=== PATIENT | male | born 1990 ===

== ENCOUNTER 2022-05-24 17:45 | Emergency (ER) | payer MEDICAID, SELFPAY ==
--- NOTE | 2022-05-24 19:48 | PC.NURSE ---
called x 4 to triage. No answer. LWT
== END 2022-05-24 19:49 | disposition left against medical advice (07) ==
PROVIDERS: Emergency Provider Emergency Medicine
DX: R22.1 Localized swelling, mass and lump, neck (principal)

== ENCOUNTER 2022-05-26 12:28 | Emergency (ER) | payer MEDICAID, SELFPAY ==
--- NOTE | ~2022-05-26 | CT_ITS ---
CT ANGIOGRAM NECK CLINICAL INFORMATION: Possible dissection versus mass. COMPARISON: Neck CT 05/26/2022. TECHNIQUE: A CTA acquisition of the neck is obtained following the administration of 70 mL of Omnipaque 350 intravenous contrast without complication. Vascular post-processing, including 2-dimensional and 3-dimensional reformatted images were created and reviewed on an independent workstation under concurrent physician supervision. Stenoses are graded per criteria similar to NASCET. This CT examination was performed using dose optimization techniques as appropriate, variously including the following: *Automated exposure control *Adjustment of mA and/or kV according to patient size (this includes techniques or standardized protocols for targeted exams where dose is matched to indication/reason for exam; i.e. extremities or head) *Use of iterative reconstruction technique FINDINGS: Correlating with the recent noncontrast CT of the neck, there is circumferential soft tissue density along the periphery of the mid to distal right common carotid artery, the right carotid bulb, and the proximal right internal carotid artery. Differential considerations include Carotidynia versus vasculitis for which vascular consultation is advised. The appearance would not be typical for a dissection though T1 and T2 fat-suppressed MR series without contrast could be obtained to more definitively exclude a dissection. 3 great vessel branch configuration off of the aortic arch. The great vessel origins are widely patent. The left vertebral artery is dominant and the cervical vertebral arteries are widely patent. The imaged upper lungs are clear and the imaged upper mediastinum is unremarkable. There are nonpathologic size criteria lymph nodes throughout the suprahyoid and infrahyoid neck. Accessory parotid tissue superficial to the masseter muscles bilaterally. CT/CT angio neck IMPRESSION: Correlating with the recent noncontrast CT of the neck, there is circumferential soft tissue density along the periphery of the mid to distal right common carotid artery, the right carotid bulb, and the proximal right internal carotid artery. Differential considerations include Carotidynia versus vasculitis for which vascular consultation is advised. The appearance would not be typical for a dissection though T1 and T2 fat-suppressed MR series WITHOUT contrast could be obtained to more definitively exclude a dissection and fat-suppressed T1 series WITH CONTRAST of the neck would be helpful in assessing for an underlying pericarotid inflammatory process.
--- NOTE | ~2022-05-26 | CT_ITS ---
EXAMINATION: CT SOFT TISSUE NECK WITHOUT CONTRAST CLINICAL INFORMATION: Painful lump in the right side of the neck COMPARISON: None TECHNIQUE: Helical imaging was performed in the axial plane with generation of coronal and sagittal reformatted images. This CT examination was performed using dose optimization techniques as appropriate, variously including the following: *Automated exposure control *Adjustment of mA and/or kV according to patient size (this includes techniques or standardized protocols for targeted exams where dose is matched to indication/reason for exam; i.e. extremities or head) *Use of iterative reconstruction technique DLP: 648 mGy-cm FINDINGS: Visualized intracranial contents are grossly unremarkable-limited assessment. Globes and retro-orbital structures are normal. Normal appearance of the inspector watch parts and parotid spaces. Submandibular glands and thyroid gland are normal. Unremarkable appearance of the larynx. No mucosal space mass. Symmetric appearance of the parapharyngeal fat. No pathologically enlarged cervical lymph nodes are identified. There is ill-defined low-density soft tissue surrounding the right carotid bifurcation and proximal right internal carotid artery, please see olea images. Assessment of vascular structures is significantly limited due to lack of intravenous contrast. Visualized upper lungs are grossly clear. There is soft tissue density in the anterior mediastinum compatible with residual thymic tissue. No mediastinal lymphadenopathy. No fracture or suspicious appearing marrow replacing lesion. CT/CT soft tissue neck wo con IMPRESSION: 1. Abnormal low-density tissue about the right carotid bifurcation and proximal right internal carotid artery. Evaluation is limited due to lack of intravenous contrast. Cannot exclude dissection or possibly carotid body tumor. Suggest a contrast-enhanced exam or MRI with contrast for further evaluation.
[2022-05-26 12:36] VITALS: BP 134/94; PULSE 77; RESP 18; TEMP 36.6; O2SAT 99; BMI 27.8
--- NOTE | 2022-05-26 12:52 | ED.GENADULT ---
HPI - General Adult General Chief complaint: Neck Pain/Injury Stated complaint: throat pain Time Seen by Provider: 05/26/22 12:52 Source: patient Mode of arrival: ambulatory Limitations: no limitations History of Present Illness HPI narrative: Patient is a 31 year old male presenting to the emergency department today with right sided neck pain. Patient states that a few days ago, the right side of his neck started to hurt and it hasn't gotten better. 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 Patient states that the pain is worse when he pushes on it or moves. Patient denies any dizziness, lightheadedness, abdominal pain, nausea, vomiting, fever, chills, blurry vision, double vision, loss of vision, chest pain, difficulty breathing, shortness of breath, back pain, night sweats, pain with urination, increased urinary frequency, increased urinary urgency, blood in his urine or stool, syncope or a near syncopal episode, recent trauma or falls, bowel incontinence, bladder incontinence, bowel retention, bladder retention, or any other complaints at this time. Onset (ago): day(s) (3) Radiation: non-radiation Severity: mild Severity scale (1-10): 3 Quality: aching and dull Pain Consistency: constant Relieving factors: none Exacerbating factors: movement Associated symptoms: denies other symptoms Treatments prior to arrival: none Related Data Previous Rx's Medication Instructions Recorded prednisone 20 mg tablet 20 mg PO DAILY 12 days #26 tabs 05/26/22 Allergies Allergy/AdvReac Type Severity Reaction Status Date / Time No Known Allergies Allergy Verified 05/26/22 13:01 Review of Systems Constitutional: Constitutional: Reports no additional constitutional complaints, Denies chills, Denies fever(s) and Denies night sweats Eyes: Eyes: Reports no additional eye complaints, Denies blurry vision, Denies change in vision, Denies diplopia, Denies eye discharge, Denies loss of vision and Denies eye pain ENT: Denies dizziness Cardiovascular: Cardiovascular: Reports no additional cardiovascular complaints, Denies chest pain, Denies lightheadedness, Denies Loss of Consciousness and Denies dyspnea Respiratory: Respiratory: Reports no additional respiratory complaints and Denies dyspnea Gastrointestinal: Gastrointestinal: Reports no additional gastrointestinal complaints, Denies abdominal pain, Denies melena, Denies hematochezia, Denies change in bowel habits and Denies change in stool character Genitourinary: Genitourinary: Reports no additional male genitourinary complaints, Denies hematuria, Denies oliguria, Denies difficulty urinating, Denies dysuria, Denies urinary frequency, Denies urinary hesitancy, Denies urinary incontinence and Denies urinary urgency Musculoskeletal: Musculoskeletal: Reports no additional musculoskeletal complaints, Denies numbness and Denies tingling Comments: right sided neck pain Neurologic: Denies dizziness, Denies loss of vision, Denies numbness and Denies tingling Psychiatric: Psychiatric: Reports no additional psychiatric complaints Endocrine: Endocrine: Reports no additional endocrine complaints Hematologic/Lymphatic: Hematologic/Lymphatic: Reports no additional hematologic/lymphatic complaints Allergic/Immunologic: Allergic/Immunologic: Reports no additional allergic/immunologic complaints [facility] Past Medical History Attestation statement: The following information was validated with the patient. Source: old records reviewed Social History Social History Advance Directives: No Advance Directives Information Provided: No Physical Exam ED Vital Signs: Vital Signs - 24 hr 05/26/22 12:36 Temperature 98 F Pulse Rate 77 Respiratory Rate 18 Blood Pressure 134/94 H Pulse Oximetry 99 Oxygen Delivery Method Room Air BMI result Body Mass Index 27.8 Const General: cooperative, no acute distress, alert and awake Nutritional Appearance: well nourished Orientation/consciousness: patient oriented x3 Limitations: no limitations [facility] Head: Yes normal to inspection and Yes atraumatic Ears: hearing grossly normal bilaterally and external ears normal General nose exam: Normal external nose present, no nasal discharge noted and no epistaxis Face and sinus: Yes normal facial exam, No abrasion and No laceration Mouth: Normal oral and palatal mucosa present, no drooling and no muffled voice Eyes General: appearance normal, both eyes and all related structures Periorbital: periorbital findings normal Eyelids: Yes eyelids normal Conjunctivae: conjunctivae normal Pupils: Equal, round and reactive pupils present EOM: EOMs intact bilaterally Neck Other: pain with movement to the right side, tender to palpation of the right anterior neck Neck: Yes no lymphadenopathy Chest Chest palpation & inspection: normal inspection of the chest Resp Effort & Inspection: normal respiratory effort and able to speak in complete sentences Auscultation: clear to auscultation bilaterally Cardio Rate: regular rate Rhythm: regular rhythm GI Inspection: Yes normal to inspection Neuro General: patient oriented x3 and moves all extremities Cranial nerves: Yes Equal, round and reactive pupils present Cognition (Neuro): normal cognition Motor exam (neuro): 5/5 motor strength present throughout Sensory Exam: Normal double simultaneous stimulation for sensation Coordination: [id number] test normal Extrem General: Yes normal to inspection, Yes full ROM and Yes capillary refill normal Psych Appearance: grossly normal Mental Status: mental status grossly normal Affect: normal affect Attitude: cooperative Thought process: Normal thought process present Thought content: Normal thought content present Insight: Good insight present (Psych) Medical Decision Making MDM Narrative Medical decision making narrative: Patient is a 31 year old male presenting to the emergency department today with right sided neck pain. Patient's physical exam showed tenderness to palpation of the right neck and pain with movement of the right neck. Patient's blood work was unremarkable. Patient's soft tissue CT scan showed an abnormal low-density tissue at the right carotid bifurcation and proximal right internal carotid artery, cannot exclude dissection or possible carotid body tumor. Patient's neck CTA showed circumferential soft tissue density along the periphery of the mid to distal right common carotid artery, the right carotid bulb, and the proximal right internal carotid artery, differential considerations include carotidynia versus vasculitis. I called and spoke to Dr. Dorantes, the vascular surgeon mergers and acquisitions consultant, who recommended the patient be started on oral steroids and follow up with a Scalloper. I explained my physical exam findings as well as all test results to the patient. I answered all questions asked by the patient. I stressed the importance of the patient taking his medication as prescribed. 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 I stressed the importance of the patient returning to the emergency department immediately if her symptoms were to worsen or if she were to develop any dizziness, shortness of breath, difficulty breathing, chest pain, blurry vision, loss of vision, nausea, vomiting, abdominal pain, fever, chills, back pain, or any other complaints. Patient verbalized agreement and understanding with this treatment plan and discharge. Differential Diagnosis Differential Diagnosis: vasculitis Medical Records Medical records reviewed: Yes I reviewed the patient's medical records. Lab Data Lab results reviewed: Yes I reviewed the patient's lab results. Result diagrams: 05/26/22 14:57 05/26/22 14:57 Labs: Lab Results 05/26/22 05/26/22 05/26/22 Range/Units 13:08 13:08 13:08 WBC (4.8-10.8) X10*3/uL RBC (4.60-5.80) X10*6/uL Hgb (14.0-18.0) g/dl Hct (42.0-52.0) % MCV (80.0-98.0) fL MCH (27.0-33.0) pg MCHC (31.0-36.0) g/dl RDW (11.0-16.0) % Plt Count (160-400) X10*3/uL MPV (9.4-12.4) fL Immature Gran % (Auto) (0.0-0.4) % Neut % (Auto) (45-73) % Lymph % (Auto) (20-40) % Travis % (Auto) (2-11) % Eos % (Auto) (0-4) % Baso % (Auto) (0-2) % Lymph # (Auto) (1.2-4.9) X10*3/uL Travis # (Auto) (0.1-1.2) X10*3/uL Eos # (Auto) (0.0-0.4) X10*3/uL Baso # (Auto) (0.0-0.2) X10*3/uL Abs Immat Gran (auto) (0.00-0.03) X10*3/uL Absolute Neuts (auto) (2.0-8.3) x10*3/uL Absolute Nucleated RBC (0.0-0.012) X10*3/uL Nucleated RBC % (auto) (0.0-0.2) /100WBC ESR (0-15) MM/HR PT (10.0-13.1) SEC INR (0.9-1.1) APTT (24.1-38.0) SEC Sodium (135-145) mmol/L Potassium (3.3-5.1) mmol/L Chloride (96-108) mmol/L Carbon Dioxide (22-29) mmol/L Anion Gap (12-20) BUN (9-16) mg/dL Creatinine (0.5-1.4) mg/dL Estim Creat Clear Calc Estimated GFR Random Glucose (60-115) mg/dL Calcium (8.4-10.2) mg/dL Total Bilirubin (0.0-1.0) mg/dL AST (5-37) U/L ALT (0-40) U/L Alkaline Phosphatase (39-117) U/L C-Reactive Protein (< or = 0.50) mg/dL Total Protein (6.5-8.0) g/dL Albumin (3.5-5.0) g/dL COVID-19 (LEA) (Negative) COVID-19 Clin Com Monoscreen Negative (Negative) Influenza Type A (JOHNNY) Negative (Negative) Influenza Type B (JOHNNY) Negative (Negative) Influenza A & B Note See Note S. pyogenes GrpA JOHNNY Negative (Negative) 05/26/22 05/26/22 05/26/22 Range/Units 13:08 14:57 14:57 WBC 7.1 (4.8-10.8) X10*3/uL RBC 4.93 (4.60-5.80) X10*6/uL Hgb 14.1 (14.0-18.0) g/dl Hct 43.1 (42.0-52.0) % MCV 87.4 (80.0-98.0) fL MCH 28.6 (27.0-33.0) pg MCHC 32.7 (31.0-36.0) g/dl RDW 13.1 (11.0-16.0) % Plt Count 235 (160-400) X10*3/uL MPV 9.3 L (9.4-12.4) fL Immature Gran % (Auto) 0.4 (0.0-0.4) % Neut % (Auto) 49.4 (45-73) % Lymph % (Auto) 41.2 H (20-40) % Travis % (Auto) 6.9 (2-11) % Eos % (Auto) 1.8 (0-4) % Baso % (Auto) 0.3 (0-2) % Lymph # (Auto) 2.9 (1.2-4.9) X10*3/uL Travis # (Auto) 0.5 (0.1-1.2) X10*3/uL Eos # (Auto) 0.1 (0.0-0.4) X10*3/uL Baso # (Auto) 0.0 (0.0-0.2) X10*3/uL Abs Immat Gran (auto) 0.03 (0.00-0.03) X10*3/uL Absolute Neuts (auto) 3.5 (2.0-8.3) x10*3/uL Absolute Nucleated RBC 0.000 (0.0-0.012) X10*3/uL Nucleated RBC % (auto) 0.0 (0.0-0.2) /100WBC ESR 5 (0-15) MM/HR PT (10.0-13.1) SEC INR (0.9-1.1) APTT (24.1-38.0) SEC Sodium (135-145) mmol/L Potassium (3.3-5.1) mmol/L Chloride (96-108) mmol/L Carbon Dioxide (22-29) mmol/L Anion Gap (12-20) BUN (9-16) mg/dL Creatinine (0.5-1.4) mg/dL Estim Creat Clear Calc Estimated GFR Random Glucose (60-115) mg/dL Calcium (8.4-10.2) mg/dL Total Bilirubin (0.0-1.0) mg/dL AST (5-37) U/L ALT (0-40) U/L Alkaline Phosphatase (39-117) U/L C-Reactive Protein (< or = 0.50) mg/dL Total Protein (6.5-8.0) g/dL Albumin (3.5-5.0) g/dL COVID-19 (LEA) Negative (Negative) COVID-19 Clin Com See Note Monoscreen (Negative) Influenza Type A (JOHNNY) (Negative) Influenza Type B (JOHNNY) (Negative) Influenza A & B Note S. pyogenes GrpA JOHNNY (Negative) 05/26/22 05/26/22 Range/Units 14:57 14:57 WBC (4.8-10.8) X10*3/uL RBC (4.60-5.80) X10*6/uL Hgb (14.0-18.0) g/dl Hct (42.0-52.0) % MCV (80.0-98.0) fL MCH (27.0-33.0) pg MCHC (31.0-36.0) g/dl RDW (11.0-16.0) % Plt Count (160-400) X10*3/uL MPV (9.4-12.4) fL Immature Gran % (Auto) (0.0-0.4) % Neut % (Auto) (45-73) % Lymph % (Auto) (20-40) % Travis % (Auto) (2-11) % Eos % (Auto) (0-4) % Baso % (Auto) (0-2) % Lymph # (Auto) (1.2-4.9) X10*3/uL Travis # (Auto) (0.1-1.2) X10*3/uL Eos # (Auto) (0.0-0.4) X10*3/uL Baso # (Auto) (0.0-0.2) X10*3/uL Abs Immat Gran (auto) (0.00-0.03) X10*3/uL Absolute Neuts (auto) (2.0-8.3) x10*3/uL Absolute Nucleated RBC (0.0-0.012) X10*3/uL Nucleated RBC % (auto) (0.0-0.2) /100WBC ESR (0-15) MM/HR PT 10.4 (10.0-13.1) SEC INR 0.9 (0.9-1.1) APTT 28.9 (24.1-38.0) SEC Sodium 141 (135-145) mmol/L Potassium 4.2 (3.3-5.1) mmol/L Chloride 105 (96-108) mmol/L Carbon Dioxide 26 (22-29) mmol/L Anion Gap 14 (12-20) BUN 14 (9-16) mg/dL Creatinine 1.31 (0.5-1.4) mg/dL Estim Creat Clear Calc 94.1 Estimated GFR > 60 Random Glucose 92 (60-115) mg/dL Calcium 9.5 (8.4-10.2) mg/dL Total Bilirubin 0.3 (0.0-1.0) mg/dL AST 79 H (5-37) U/L ALT 90 H (0-40) U/L Alkaline Phosphatase 74 (39-117) U/L C-Reactive Protein 0.31 (< or = 0.50) mg/dL Total Protein 7.8 (6.5-8.0) g/dL Albumin 4.9 (3.5-5.0) g/dL COVID-19 (LEA) (Negative) COVID-19 Clin Com Monoscreen (Negative) Influenza Type A (JOHNNY) (Negative) Influenza Type B (JOHNNY) (Negative) Influenza A & B Note S. pyogenes GrpA JOHNNY (Negative) Imaging Data CT Soft Tissue Neck: Attestation: I personally reviewed and interpreted this imaging study as follows: Radiologist's impression: EXAMINATION: CT SOFT TISSUE NECK WITHOUT CONTRAST CLINICAL INFORMATION: Painful lump in the right side of the neck? COMPARISON: None? TECHNIQUE: Helical imaging was performed in the axial plane with generation of coronal and sagittal reformatted images. This CT examination was performed using dose optimization techniques as appropriate, variously including the following: *Automated exposure control *Adjustment of mA and/or kV according to patient size (this includes techniques or standardized protocols for targeted exams where dose is matched to indication/reason for exam; i.e. extremities or head) *Use of iterative reconstruction technique DLP: 648 mGy-cm FINDINGS: Visualized intracranial contents are grossly unremarkable-limited assessment. Globes and retro-orbital structures are normal. Normal appearance of the data center project manager and parotid spaces. Submandibular glands and thyroid gland are normal. Unremarkable appearance of the larynx. No mucosal space mass. Symmetric appearance of the parapharyngeal fat. No pathologically enlarged cervical lymph nodes are identified. There is ill-defined low-density soft tissue surrounding the right carotid bifurcation and proximal right internal carotid artery, please see olea images. Assessment of vascular structures is significantly limited due to lack of intravenous contrast. Visualized upper lungs are grossly clear. There is soft tissue density in the anterior mediastinum compatible with residual thymic tissue. No mediastinal lymphadenopathy. No fracture or suspicious appearing marrow replacing lesion. CT/CT soft tissue neck wo con IMPRESSION: ? 1. Abnormal low-density tissue about the right carotid bifurcation and proximal right internal carotid artery. Evaluation is limited due to lack of intravenous contrast. Cannot exclude dissection or possibly carotid body tumor. Suggest a contrast-enhanced exam or MRI with contrast for further evaluation. Dictated By: Nicko Zuñiga Signed By: Electronically signed by Nicko?Yogesh 05/26/22 1409 Neck CTA: Attestation: I personally reviewed and interpreted this imaging study as follows: Radiologist's impression: CT ANGIOGRAM NECK CLINICAL INFORMATION: Possible dissection versus mass.? COMPARISON: Neck CT 05/26/2022.? TECHNIQUE: A CTA acquisition of the neck is obtained following the administration of 70 mL of Omnipaque 350 intravenous contrast without complication. Vascular post-processing, including 2-dimensional and 3-dimensional reformatted images were created and reviewed on an independent workstation under concurrent physician supervision. Stenoses are graded per criteria similar to NASCET. This CT examination was performed using dose optimization techniques as appropriate, variously including the following: *Automated exposure control *Adjustment of mA and/or kV according to patient size (this includes techniques or standardized protocols for targeted exams where dose is matched to indication/reason for exam; i.e. extremities or head) *Use of iterative reconstruction technique FINDINGS: Correlating with the recent noncontrast CT of the neck, there is circumferential soft tissue density along the periphery of the mid to distal right common carotid artery, the right carotid bulb, and the proximal right internal carotid artery. Differential considerations include Carotidynia versus vasculitis for which vascular consultation is advised. The appearance would not be typical for a dissection though T1 and T2 fat-suppressed MR series without contrast could be obtained to more definitively exclude a dissection. 3 great vessel branch configuration off of the aortic arch. The great vessel origins are widely patent. The left vertebral artery is dominant and the cervical vertebral arteries are widely patent. The imaged upper lungs are clear and the imaged upper mediastinum is unremarkable. There are nonpathologic size criteria lymph nodes throughout the suprahyoid and infrahyoid neck. Accessory parotid tissue superficial to the masseter muscles bilaterally. CT/CT angio neck IMPRESSION: Correlating with the recent noncontrast CT of the neck, there is circumferential soft tissue density along the periphery of the mid to distal right common carotid artery, the right carotid bulb, and the proximal right internal carotid artery. Differential considerations include Carotidynia versus vasculitis for which vascular consultation is advised. The appearance would not be typical for a dissection though T1 and T2 fat-suppressed MR series WITHOUT contrast could be obtained to more definitively exclude a dissection and fat-suppressed T1 series WITH CONTRAST of the neck would be helpful in assessing for an underlying pericarotid inflammatory process. Dictated By: Kevin Edge MD Signed By: Electronically signed by Kevin Edge MD 05/26/22 9702 Discharge Plan Discharge Clinical Impression: Vasculitis Patient Disposition: Home, Self-Care Instructions: Acute Neck Pain (ED) Additional Instructions: You are likely suffering from vasculitis. Follow up with your primary care provider and a rheumatoid specialist. Return to the emergency department immediately if your symptoms worsen or if you develop any dizziness, shortness of breath, difficulty breathing, chest pain, blurry vision, loss of vision, nausea, vomiting, abdominal pain, fever, chills, back pain, or any other complaints. Prescriptions: New prednisone 20 mg tablet 20 mg PO DAILY 12 Days Qty: 26 0RF Rx Instructions: Take 3 tablets for 5 days THEN; Take 2 tablets for 4 days THEN; Take 1 tablet for 3 days Referrals: [facility] [place] [facility] [Provider Group] (Call to establish and follow up with a primary care provider. If you already have a primary care provider, please follow up with them. ) [facility] [place] Primary Care, Ty [Provider Group] (Call to establish and follow up with a primary care provider. If you already have a primary care provider, please follow up with them. ) [facility] [place] Primary Care,Karen [Provider Group] (Call to establish and follow up with a primary care provider. If you already have a primary care provider, please follow up with them. ) [facility] [place] Rheumatology Service [Provider Group] (Call to establish and follow up with a insurance verification specialist. ) Stand Alone Forms: Work/School Release Interventions: ED Discharge Assessment Last Done: 05/26/22 16:50 Discharge Date/Time: 05/26/22 16:53 Print Language: Sinhala
[2022-05-26 13:32] LABS: Strep A Nucleic Acid Negative (Negative)
[2022-05-26 13:40] LABS: COVID-19 Test Negative (Negative); IDNOW Serial# 16C4AD1C; Influenza A Negative (Negative); Influenza B2 Negative (Negative)
[2022-05-26 15:00] LABS: MANUAL DIFF FLAG NO
[2022-05-26 15:04] LABS: Basophils Percent Auto 0.3 % (0-2); Eosinophils Absolute Auto 0.1 X10*3/uL (0.0-0.4); Eosinophils Percent Auto 1.8 % (0-4); Hematocrit 43.1 % (42.0-52.0); Hemoglobin 14.1 g/dl (14.0-18.0); Imm Gran Abs Auto 0.03 X10*3/uL (0.00-0.03); Imm Gran Pct Auto 0.4 % (0.0-0.4); Lymphocytes Absolute Auto 2.9 X10*3/uL (1.2-4.9); Lymphocytes Percent Auto 41.2 % (20-40); Mean Corpuscular HGB Conc 32.7 g/dl (31.0-36.0); Mean Corpuscular Hemoglobin 28.6 pg (27.0-33.0); Mean Corpuscular Volume 87.4 fL (80.0-98.0); Mean Platelet Volume 9.3 fL (9.4-12.4); Monocytes Absolute Auto 0.5 X10*3/uL (0.1-1.2); Monocytes Percent Auto 6.9 % (2-11); Neutrophils Absolute Auto 3.5 x10*3/uL (2.0-8.3); Neutrophils Percent Auto 49.4 % (45-73); Platelet Count 235 X10*3/uL (160-400); Red Blood Count 4.93 X10*6/uL (4.60-5.80); Red Cell Distribution Width 13.1 % (11.0-16.0); White Blood Count 7.1 X10*3/uL (4.8-10.8)
[2022-05-26 15:08] LABS: INTERNATIONAL NORM RATIO 0.9 (0.9-1.1); Prothrombin Time 10.4 SEC (10.0-13.1)
[2022-05-26 15:10] LABS: Partial Thromboplastin Time 28.9 SEC (24.1-38.0)
[2022-05-26 15:18] LABS: Monotest Negative (Negative)
[2022-05-26 15:24] LABS: Alanine Aminotransferase 90 U/L (0-40); Albumin Level 4.9 g/dL (3.5-5.0); Alkaline Phosphatase 74 U/L (39-117); Anion Gap 14 (12-20); Aspartate Amino Transferase 79 U/L (5-37); Bilirubin Total 0.3 mg/dL (0.0-1.0); Blood Urea Nitrogen 14 mg/dL (9-16); C Reactive Protein 0.31 mg/dL (< or = 0.50); Calcium 9.5 mg/dL (8.4-10.2); Carbon Dioxide 26 mmol/L (22-29); Chloride 105 mmol/L (96-108); Creatinine Clr Calc Pharmacy 94.1; Estimated Glomerular Filt Rate > 60; Glucose Random 92 mg/dL (60-115); Potassium 4.2 mmol/L (3.3-5.1); Sodium 141 mmol/L (135-145); Total Protein 7.8 g/dL (6.5-8.0)
[2022-05-26 15:42] LABS: Erythrocyte Sedimentation Rate 5 MM/HR (0-15)
[2022-05-26] MEDS: iohexoL 350 MG/ML 100 ML INFUS..BTL IV (15:45)
== END 2022-05-26 16:53 | disposition home or self-care (01) ==
PROVIDERS: Physician Assistant Medical; Emergency Provider Emergency Medicine Emergency Medical Services
DX: L95.8 Other vasculitis limited to the skin (principal); M54.2 Cervicalgia; Z20.822 Contact with and (suspected) exposure to COVID-19
CPT/HCPCS: 36415; 70490; 70498; 80053; 85025; 85610; 85652; 85730; 86140; 86308; 87502; 87635; 87651; 99282; 99284; Q9967

== ENCOUNTER 2022-05-31 07:28 | Emergency (ER) | payer MEDICAID, SELFPAY ==
--- NOTE | ~2022-05-31 | CT_ITS ---
EXAMINATION: CT ANGIOGRAM NECK WITH CONTRAST CT ANGIOGRAM BRAIN WITH CONTRAST CLINICAL INFORMATION: Right-sided paresthesias. COMPARISON: Neck CT 05/26/2022. TECHNIQUE: Test bolus sequences followed by intravenous administration 70 mL of Omnipaque 350. Helical imaging was performed in the axial plane from the thoracic inlet to the skull vertex. Delayed postcontrast imaging of the head was also performed. The data was processed at the cytotechnologist supervisor workstation for generation of MIP sequences. Angled MIPs and volume rendered reformatted images were also generated at an offline 3D workstation under concurrent supervision. Stenoses are assessed in accordance with NASCET criteria unless otherwise indicated. This CT examination was performed using dose optimization techniques as appropriate, variously including the following: *Automated exposure control *Adjustment of mA and/or kV according to patient size (this includes techniques or standardized protocols for targeted exams where dose is matched to indication/reason for exam; i.e. extremities or head) *Use of iterative reconstruction technique FINDINGS: BRAIN: [There is no intracranial hemorrhage, hydrocephalus, extra-axial surface collection, midline shift, or other herniation pattern. Lee to white matter differentiation is diffusely maintained without evidence of an evolved acute territorial infarct. The basilar cisterns are preserved. No significant soft tissue abnormality. No acute osseous abnormality. The paranasal sinuses and the mastoid air cells are well aerated.] CERVICAL SOFT TISSUES AND LUNG APICES: There is similar appearing soft tissue density along the periphery of the distal right common carotid artery and there is slightly improved soft tissue thickening along the periphery of the proximal right internal carotid artery. As discussed on the prior examination, differential considerations include carotidynia versus vasculitis for which vascular consultation is advised. The appearance would not be typical for a dissection though T1 and T2 fat-suppressed MR series WITHOUT contrast could be obtained to more definitively exclude a dissection and fat-suppressed T1 series WITH CONTRAST of the neck would be helpful in assessing for an underlying pericarotid inflammatory process. NECK CTA: [There is a classic 3 vessel configuration of the aortic arch. Proximal arch vessels are non-stenotic. The vertebral arteries are codominant. No significant ostial stenosis is visualized on either side. Both vertebral arteries are widely patent throughout their extracranial cervical course. No significant stenosis involving the common or internal carotid arteries. BRAIN CTA: [There is normal opacification of major intracranial arteries. No focal flow-limiting stenosis nor discrete proximal large artery occlusion. No aneurysm. Timing of the contrast bolus allows assessment of the major dural venous sinuses, which all opacify normally] CT/CT angio head neck IMPRESSION: - There is similar appearing soft tissue density along the periphery of the distal right common carotid artery and there is slightly improved soft tissue thickening along the periphery of the proximal right internal carotid artery. As discussed on the prior examination, differential considerations include carotidynia versus vasculitis for which vascular consultation is advised. The appearance would not be typical for a dissection though T1 and T2 fat-suppressed MR series WITHOUT contrast could be obtained to more definitively exclude a dissection and fat-suppressed T1 series WITH CONTRAST of the neck would be helpful in assessing for an underlying pericarotid inflammatory process. - The cervical and intracranial arterial vasculature otherwise unremarkable. No acute intracranial findings
[2022-05-31 07:56] VITALS: BP 143/95; PULSE 66; RESP 18; TEMP 36.9; O2SAT 95; BMI 27.8
--- NOTE | 2022-05-31 08:02 | ECG_ITS ---
Test Reason : tingling Blood Pressure : / mmHG Vent. Rate : 061 BPM Atrial Rate : 061 BPM P-R Int : 156 ms QRS Dur : 090 ms QT Int : 380 ms P-R-T Axes : 014 030 026 degrees QTc Int : 382 ms Normal sinus rhythm Normal ECG No previous ECGs available Referred By: Fatoumata Doe Electronically Signed By:Artis Shay
--- NOTE | 2022-05-31 08:03 | ED_ITS ---
HPI - Neuro Symptoms/Deficit General Chief Complaint: Extremity Problem Stated Complaint: R arm pain, tingles, numbness Time Seen by Provider: 05/31/22 07:53 Source: patient and old records reviewed Mode of arrival: ambulatory Limitations: no limitations History of Present Illness HPI Narrative: 31 yo male with hx of vasculitis here on 05/26 with carotid bulb area inflammation case discussed with Dr. Dorantes from vascular suggested oral steroids. Patient has been taking prednisone daily but missed last nights dose, went to bed around 10pm. Woke up at 6pm today and noted R forearm parasthesias. He did not wake up in the middle of the night and these symptoms were present. He states his neck feels much better. Onset (ago): hour(s) (woke up with symptoms went to bed before midnight) Location: right arm History of same: No Severity: mild Quality: tingling Relieving factors: none Exacerbating factors: none Context: gradual onset On Anticoagulants: No Associated symptoms: denies other symptoms Treatments Prior to Arrival: none Related Data Previous Rx's Medication Instructions Recorded prednisone 20 mg tablet 20 mg PO DAILY 12 days #26 tabs 05/26/22 Allergies Allergy/AdvReac Type Severity Reaction Status Date / Time No Known Allergies Allergy Verified 05/26/22 13:01 Review of Systems Review of Systems: Constitutional : No Weight loss, No Fever, No Chills, No Fatigue, No Malaise ENT/Mouth : No sore throat, No Rhinorrhea Eyes: No Eye Pain, No Swelling, No Redness Cardiovascular : No Chest Pain, No SOB, No Dyspnea on Exertion, No Orthopnea, No Edema, No Palpitations Respiratory : No Cough, No Sputum, No Wheezing Gastrointestinal : No Nausea, No Vomiting, No Diarrhea, No Constipation, No abdominal Pain, No Hematochezia, No Melena Genitourinary : No Dysuria, No Urinary Frequency, No Hematuria, Musculoskeletal : No joint pain, No Myalgias, No Joint Swelling Skin : No Skin Lesions, No rash Neuro : No Weakness, pos Numbness, No Dizziness, No Headache Psych : No Anxiety/Panic, No Depression Heme/Lymph: No Bruising, No Bleeding,No Lymphadenopathy Endocrine : No Polyuria, No Polydipsia All other systems reviewed and are negative PMFSH Past Medical History Attestation statement: The following information was validated with the patient. Medical History Vasculitis Social History Social History (Updated 05/31/22 @ 08:04 by Fatoumata Doe DO) Patient Tobacco Use Status: Current everyday Tobacco user Use of substances other than those prescribed or required for medical reasons: No Advance Directives: No Advance Directives Information Provided: Yes Physical Exam Vital Signs: Vital Signs: Last Vital Signs Temp 98.2 F 05/31/22 10:00 Pulse 64 05/31/22 10:00 Resp 18 05/31/22 10:00 BP 128/96 H 05/31/22 10:00 Pulse Ox 98 05/31/22 10:00 O2 Del Method 05/31/22 10:00 BMI result Body Mass Index 27.8 Appearance: Alert. Oriented X3. No acute distress. Eyes: Pupils equal, round and reactive to light. ENT: Pharynx normal. Neck: Normal inspection. Neck supple. CVS: Normal heart rate and rhythm. Pulses normal. Respiratory: No respiratory distress. Breath sounds normal. Abdomen: Soft and nontender. Skin: Skin warm and dry. Normal skin color. Normal skin turgor. Extremities: No lower extremity edema. No calf ttp Neuro: Oriented X 3. No motor deficit. No sensory deficit. R hand bounding radial pulse BCR in all digits, SILT in hand and can feel forearm just states it feels funny to him Course Course Course Narrative: infl markers were negative on 05/26 and today ?vasculitis repeat CTA of head and neck ordered improvement on CTA - symptoms resolved can complete prednisone taper MDM - Neuro Symptoms/Deficit MDM Narrative Medical decision making narrative: 31 yo male with recent treatment starting 05/26 carotid vasculitis at this time was taking prednisone but missed last nights dose - now c/o R forearm parasthesias he is NV intact on exam and woke up with symptom went to bed over 6 hours ago and NIH score is low with symptoms mild and nondisabling would not be a candidate for tPa - at this time will obtain labs, infl markers, repeat CTA, IV steroids. Dispo per results and findings. Lab Data Result diagrams: 05/31/22 08:18 05/31/22 08:17 Labs: Lab Results 05/31/22 05/31/22 05/31/22 Range/Units 08:16 08:17 08:17 WBC (4.8-10.8) X10*3/uL RBC (4.60-5.80) X10*6/uL Hgb (14.0-18.0) g/dl Hct (42.0-52.0) % MCV (80.0-98.0) fL MCH (27.0-33.0) pg MCHC (31.0-36.0) g/dl RDW (11.0-16.0) % Plt Count (160-400) X10*3/uL MPV (9.4-12.4) fL Immature Gran % (Auto) (0.0-0.4) % Neut % (Auto) (45-73) % Lymph % (Auto) (20-40) % [place] % (Auto) (2-11) % Eos % (Auto) (0-4) % Baso % (Auto) (0-2) % Lymph # (Auto) (1.2-4.9) X10*3/uL [place] # (Auto) (0.1-1.2) X10*3/uL Eos # (Auto) (0.0-0.4) X10*3/uL Baso # (Auto) (0.0-0.2) X10*3/uL Abs Immat Gran (auto) (0.00-0.03) X10*3/uL Absolute Neuts (auto) (2.0-8.3) x10*3/uL Absolute Nucleated RBC (0.0-0.012) X10*3/uL Nucleated RBC % (auto) (0.0-0.2) /100WBC ESR 1 (0-15) MM/HR PT (10.0-13.1) SEC INR (0.9-1.1) Sodium 139 (135-145) mmol/L Potassium 3.9 (3.3-5.1) mmol/L Chloride 104 (96-108) mmol/L Carbon Dioxide 23 (22-29) mmol/L Anion Gap 16 (12-20) BUN 19 H (9-16) mg/dL Creatinine 1.07 (0.5-1.4) mg/dL Estim Creat Clear Calc 115.2 Estimated GFR > 60 Random Glucose 111 (60-115) mg/dL Calcium 9.3 (8.4-10.2) mg/dL Magnesium 2.1 (1.6-2.6) mg/dL Total Bilirubin 0.3 (0.0-1.0) mg/dL Direct Bilirubin < 0.2 (0.0-0.5) mg/dL AST 120 H (5-37) U/L ALT 213 H (0-40) U/L Alkaline Phosphatase 69 (39-117) U/L C-Reactive Protein 0.05 (< or = 0.50) mg/dL Total Protein 7.4 (6.5-8.0) g/dL Albumin 4.6 (3.5-5.0) g/dL COVID-19 (LEA) Negative (Negative) COVID-19 Clin Com See Note 05/31/22 05/31/22 Range/Units 08:18 08:50 WBC 11.7 H (4.8-10.8) X10*3/uL RBC 5.06 (4.60-5.80) X10*6/uL Hgb 14.4 (14.0-18.0) g/dl Hct 44.2 (42.0-52.0) % MCV 87.4 (80.0-98.0) fL MCH 28.5 (27.0-33.0) pg MCHC 32.6 (31.0-36.0) g/dl RDW 13.2 (11.0-16.0) % Plt Count 273 (160-400) X10*3/uL MPV 9.2 L (9.4-12.4) fL Immature Gran % (Auto) 2.0 H (0.0-0.4) % Neut % (Auto) 53.3 (45-73) % Lymph % (Auto) 37.7 (20-40) % [place] % (Auto) 6.0 (2-11) % Eos % (Auto) 0.7 (0-4) % Baso % (Auto) 0.3 (0-2) % Lymph # (Auto) 4.4 (1.2-4.9) X10*3/uL [place] # (Auto) 0.7 (0.1-1.2) X10*3/uL Eos # (Auto) 0.1 (0.0-0.4) X10*3/uL Baso # (Auto) 0.0 (0.0-0.2) X10*3/uL Abs Immat Gran (auto) 0.23 H (0.00-0.03) X10*3/uL Absolute Neuts (auto) 6.3 (2.0-8.3) x10*3/uL Absolute Nucleated RBC 0.000 (0.0-0.012) X10*3/uL Nucleated RBC % (auto) 0.0 (0.0-0.2) /100WBC ESR (0-15) MM/HR PT 9.5 L (10.0-13.1) SEC INR 0.8 L (0.9-1.1) Sodium (135-145) mmol/L Potassium (3.3-5.1) mmol/L Chloride (96-108) mmol/L Carbon Dioxide (22-29) mmol/L Anion Gap (12-20) BUN (9-16) mg/dL Creatinine (0.5-1.4) mg/dL Estim Creat Clear Calc Estimated GFR Random Glucose (60-115) mg/dL Calcium (8.4-10.2) mg/dL Magnesium (1.6-2.6) mg/dL Total Bilirubin (0.0-1.0) mg/dL Direct Bilirubin (0.0-0.5) mg/dL AST (5-37) U/L ALT (0-40) U/L Alkaline Phosphatase (39-117) U/L C-Reactive Protein (< or = 0.50) mg/dL Total Protein (6.5-8.0) g/dL Albumin (3.5-5.0) g/dL COVID-19 (LEA) (Negative) COVID-19 Clin Com ECG Data Attestation: I personally reviewed and interpreted this ECG as follows: ECG interpretation date: 05/31/22 ECG interpretation time: 08:51 Interpretation: Rate: 61 Rhythm: NSR [place]: normal Normal P waves. Normal MICKY. Normal QRS complex. ST T wave : normal no LISSET qTC: normal prior studies: no acute ischemia The study has been interpreted contemporaneously by me. . NIH Stroke Scale Internal: Initial- Upon Arrival Level of Consciousness: Alert Level of Consciousness Questions: Answers both questions correctly Level of Consciousness Commands: Performs both tasks correctly Best Gaze: Normal Visual: No visual loss Facial Palsy: Normal Motor Arm (Right): No drift Motor Arm (Left): No drift Motor Leg (Right): No drift Motor Leg (Left): No drift Limb Ataxia: Absent Sensory: Normal Best Language: No aphasia Dysarthia: Normal Extinction and Inattention: No abnormality Score: 0 Discharge Plan Discharge Clinical Impression: Arm paresthesia, right Patient Disposition: Home, Self-Care Instructions: Paresthesia (ED) Additional Instructions: return to ED for any worsening symptoms or concerns improvement on CT scan please follow up with primary care continue prednisone Prescriptions: No Action prednisone 20 mg tablet 20 mg PO DAILY 12 Days Qty: 26 0RF Rx Instructions: Take 3 tablets for 5 days THEN; Take 2 tablets for 4 days THEN; Take 1 tablet for 3 days Stand Alone Forms: Work/School Release
[2022-05-31 08:19] VITALS: BP 149/107; PULSE 69; RESP 16; TEMP 37; O2SAT 95
[2022-05-31 08:23] LABS: MANUAL DIFF FLAG NO
[2022-05-31 08:24] LABS: Basophils Percent Auto 0.3 % (0-2); Eosinophils Absolute Auto 0.1 X10*3/uL (0.0-0.4); Eosinophils Percent Auto 0.7 % (0-4); Hematocrit 44.2 % (42.0-52.0); Hemoglobin 14.4 g/dl (14.0-18.0); Imm Gran Abs Auto 0.23 X10*3/uL (0.00-0.03); Lymphocytes Absolute Auto 4.4 X10*3/uL (1.2-4.9); Lymphocytes Percent Auto 37.7 % (20-40); Mean Corpuscular HGB Conc 32.6 g/dl (31.0-36.0); Mean Corpuscular Hemoglobin 28.5 pg (27.0-33.0); Mean Corpuscular Volume 87.4 fL (80.0-98.0); Mean Platelet Volume 9.2 fL (9.4-12.4); Monocytes Absolute Auto 0.7 X10*3/uL (0.1-1.2); Neutrophils Absolute Auto 6.3 x10*3/uL (2.0-8.3); Neutrophils Percent Auto 53.3 % (45-73); Platelet Count 273 X10*3/uL (160-400); Red Blood Count 5.06 X10*6/uL (4.60-5.80); Red Cell Distribution Width 13.2 % (11.0-16.0); White Blood Count 11.7 X10*3/uL (4.8-10.8)
[2022-05-31] MEDS: LORazepam 2 MG/ML VIAL 0.5 MG IVPUSH (08:32)
[2022-05-31] MEDS: 0.9 % Sodium Chloride 1,000 ML 999 ML IV (08:33)
[2022-05-31] MEDS: methylPREDNISolone Sod Succ 125 MG/2 ML VIAL IVPUSH (08:33)
[2022-05-31 08:41] LABS: COVID-19 Test Negative (Negative); IDNOW Serial# 9DB6401D
[2022-05-31 08:45] LABS: Alanine Aminotransferase 213 U/L (0-40); Albumin Level 4.6 g/dL (3.5-5.0); Alkaline Phosphatase 69 U/L (39-117); Anion Gap 16 (12-20); Aspartate Amino Transferase 120 U/L (5-37); Bilirubin Direct < 0.2 mg/dL (0.0-0.5); Bilirubin Total 0.3 mg/dL (0.0-1.0); Blood Urea Nitrogen 19 mg/dL (9-16); C Reactive Protein 0.05 mg/dL (< or = 0.50); Calcium 9.3 mg/dL (8.4-10.2); Carbon Dioxide 23 mmol/L (22-29); Chloride 104 mmol/L (96-108); Creatinine Clr Calc Pharmacy 115.2; Estimated Glomerular Filt Rate > 60; Glucose Random 111 mg/dL (60-115); Magnesium 2.1 mg/dL (1.6-2.6); Potassium 3.9 mmol/L (3.3-5.1); Sodium 139 mmol/L (135-145); Total Protein 7.4 g/dL (6.5-8.0)
[2022-05-31 09:04] LABS: INTERNATIONAL NORM RATIO 0.8 (0.9-1.1); Prothrombin Time 9.5 SEC (10.0-13.1)
[2022-05-31 09:08] LABS: Erythrocyte Sedimentation Rate 1 MM/HR (0-15)
[2022-05-31] MEDS: iohexoL 300 MG/ML 100 ML INFUS..BTL IV (09:37)
[2022-05-31 09:46] VITALS: BP 148/103; PULSE 61; RESP 18; TEMP 36.7; O2SAT 98
[2022-05-31 10:00] VITALS: BP 128/96; PULSE 64; RESP 18; TEMP 36.8; O2SAT 98
--- NOTE | 2022-05-31 11:20 | PC.NURSE ---
patient a&ox3, vss, rn cardiac intact nsr 60s, pt denies pain at this time, call medley within reach, will continue to monitor
== END 2022-05-31 11:49 | disposition home or self-care (01) ==
PROVIDERS: Emergency Provider Emergency Medicine
DX: R20.2 Paresthesia of skin (principal); M79.601 Pain in right arm; M54.2 Cervicalgia; Z20.822 Contact with and (suspected) exposure to COVID-19; Z79.899 Other long term (current) drug therapy
CPT/HCPCS: 70496; 70498; 80048; 80076; 83735; 85025; 85610; 85652; 86140; 87635; 93005; 96374; 96375; 99284; J2060; J2930; Q9967

== ENCOUNTER 2024-08-26 13:53 | Outpatient (REF) | payer MEDICAID, SELFPAY ==
[2024-08-26 16:00] LABS: MANUAL DIFF FLAG NO
[2024-08-26 16:29] LABS: Basophils Percent Auto 0.6 % (0-2); Eosinophils Absolute Auto 0.1 X10*3/uL (0.0-0.4); Eosinophils Percent Auto 1.3 % (0-4); Hematocrit 46.8 % (42.0-52.0); Hemoglobin 15.4 g/dl (14.0-18.0); Imm Gran Abs Auto 0.03 X10*3/uL (0.00-0.03); Imm Gran Pct Auto 0.5 % (0.0-0.4); Lymphocytes Absolute Auto 2.6 X10*3/uL (1.2-4.9); Lymphocytes Percent Auto 41.4 % (20-40); Mean Corpuscular HGB Conc 32.9 g/dl (31.0-36.0); Mean Corpuscular Hemoglobin 29.8 pg (27.0-33.0); Mean Corpuscular Volume 90.7 fL (80.0-98.0); Mean Platelet Volume 9.6 fL (9.4-12.4); Monocytes Absolute Auto 0.4 X10*3/uL (0.1-1.2); Monocytes Percent Auto 6.9 % (2-11); Neutrophils Absolute Auto 3.1 x10*3/uL (2.0-8.3); Neutrophils Percent Auto 49.3 % (45-73); Platelet Count 256 X10*3/uL (160-400); Red Blood Count 5.16 X10*6/uL (4.60-5.80); Red Cell Distribution Width 12.8 % (11.0-16.0); White Blood Count 6.2 X10*3/uL (4.8-10.8)
[2024-08-26 16:35] LABS: Alanine Aminotransferase 84 U/L (0-40); Albumin Level 5.2 g/dL (3.5-5.0); Alkaline Phosphatase 77 U/L (39-117); Anion Gap 14 (12-20); Aspartate Amino Transferase 59 U/L (5-37); Bilirubin Total 0.5 mg/dL (0.0-1.0); Blood Urea Nitrogen 14 mg/dL (9-16); C Reactive Protein < 0.10 mg/dL (< or = 0.50); Calcium 10.3 mg/dL (8.4-10.2); Carbon Dioxide 26 mmol/L (22-29); Chloride 103 mmol/L (96-108); Cholesterol 228 mg/dL (<200); Estimated Glomerular Filt Rate > 60; Glucose Random 107 mg/dL (60-115); HDL Cholesterol 55 mg/dL (>40); LDL Cholesterol Calculated 101 mg/dL (<100); Potassium 4.3 mmol/L (3.3-5.1); Sodium 139 mmol/L (135-145); Total Protein 8.4 g/dL (6.5-8.0); Triglycerides 361 mg/dL (<150)
[2024-08-26 16:42] LABS: TSH reflex Free T4 0.89 uIU/mL (0.32-4.0)
[2024-08-26 17:11] LABS: Erythrocyte Sedimentation Rate 2 MM/HR (0-15)
[2024-08-27 08:28] LABS: Syphilis Screen Nonreactive (Nonreactive)
[2024-08-27 08:46] LABS: HIV AB/AG Nonreactive (Nonreactive); HIV Num 1 0.04 S/CO (0.00-0.99); ~Hepatitis C Antibody Nonreactive (Nonreactive)
[2024-08-31 14:04] LABS: Anti Nuclear Antibody Screen NEGATIVE (NEGATIVE)
== END 2024-08-26 13:54 | disposition home or self-care (01) ==
LOC: HO.HHCL 13:53
PROVIDERS: Visit Provider Internal Medicine
DX: F17.290 Nicotine dependence, other tobacco product, uncomplicated (principal); R03.0 Elevated blood-pressure reading, without diagnosis of hypertension; Z11.3 Encounter for screening for infections with a predominantly sexual mode of transmission; I99.9 Unspecified disorder of circulatory system
CPT/HCPCS: 36415; 80053; 80061; 84443; 85025; 85652; 86038; 86140; 86780; 86803; 87389

== ENCOUNTER 2024-09-04 08:54 | Outpatient (REF) | payer OTHER, SELFPAY ==
--- NOTE | ~2024-09-04 | US_ITS ---
EXAMINATION: US ABDOMEN COMPLETE CLINICAL INFORMATION: Transaminitis. COMPARISON: None available. TECHNIQUE: Real-time imaging of the abdominal viscera. FINDINGS: PANCREAS: Normal. ABDOMINAL AORTA: The proximal, mid, and distal segments are normal in caliber. INFERIOR VENA CAVA: Visualized portions are normal. LIVER: The liver is likely enlarged but accurate measurements were not obtained. The liver contour is normal. There is diffuse increased liver parenchymal echogenicity, consistent with hepatic steatosis. No focal hepatic lesion. There is no intrahepatic biliary duct dilatation seen. GALLBLADDER: The gallbladder is physiologically distended. A single large 2.1 cm gallstone is present. No evidence of gallbladder wall thickening or pericholecystic fluid. COMMON BILE DUCT: Normal in caliber measuring 0.36 cm in diameter. RIGHT KIDNEY: Normal. No hydronephrosis. No renal calculi or focal parenchymal lesions. The kidney measures 12.1 cm in maximum dimension. LEFT KIDNEY: Normal. No hydronephrosis. No renal calculi or focal parenchymal lesions. The kidney measures 11.3 cm in maximum dimension. SPLEEN: The spleen is enlarged measuring 13.4 cm in maximum dimension. FREE FLUID: None. US/US abdomen complete IMPRESSION: 1. Enlarged fatty liver. 2. Cholelithiasis without evidence of cholecystitis. 3. Mild splenomegaly. Electronically signed by: Nito Christiansen MD 10/30/2024 01:40 PM EST
== END 2024-09-04 08:55 | disposition home or self-care (01) ==
LOC: HO.US 08:54
PROVIDERS: PCP Internal Medicine; Visit Provider Internal Medicine
DX: R74.01 Elevation of levels of liver transaminase levels (principal)
CPT/HCPCS: 76700

== ENCOUNTER 2024-09-04 10:58 | Outpatient (REF) | payer OTHER, SELFPAY ==
[2024-09-04 14:07] LABS: Anion Gap 15 (12-20); Blood Urea Nitrogen 16 mg/dL (9-16); Calcium 10.6 mg/dL (8.4-10.2); Carbon Dioxide 24 mmol/L (22-29); Chloride 105 mmol/L (96-108); Estimated Glomerular Filt Rate > 60; Glucose Random 123 mg/dL (60-115); Parathyroid Hormone Intact 33.5 pg/mL (8.7-77.1); Potassium 4.5 mmol/L (3.3-5.1); Sodium 139 mmol/L (135-145)
[2024-09-04 15:08] LABS: CT PCR NOT DETECTED (Not Detect.); NG PCR NOT DETECTED (Not Detect.)
[2024-09-07 22:52] LABS: Prot Elec - Albumin 5.3 g/dL (3.8-4.8); Prot Elec - Alpha1 0.2 g/dL (0.2-0.3); Prot Elec - Alpha2 0.7 g/dL (0.5-0.9); Prot Elec - Beta 1 0.4 g/dL (0.4-0.6); Prot Elec - Beta 2 0.4 g/dL (0.2-0.5); Prot Elec - Gamma 0.9 g/dL (0.8-1.7); Prot Elec - Total Protein 7.9 g/dL (6.1-8.1)
== END 2024-09-04 10:59 | disposition home or self-care (01) ==
LOC: HO.HHCL 10:58
PROVIDERS: Visit Provider Internal Medicine
DX: E83.52 Hypercalcemia (principal); R74.01 Elevation of levels of liver transaminase levels
CPT/HCPCS: 36415; 80048; 83970; 84165; 87491; 87591

== ENCOUNTER 2024-10-05 14:30 | Outpatient (AMB) | payer OTHER, SELFPAY ==
--- NOTE | 2024-10-05 14:34 | MHC.OFFVIS ---
Vital Signs 10/05/24 14:35 Height 6 ft 2 in Weight 244 lb 4.355 oz BMI 31.4 BP 160/100 H Blood Pressure Location Lt brachial Position Sitting Pulse 88 Pulse Source Pulse Oximeter Intake Visit Reasons: Hypercalcemia-lvm Intake Note: New patient present today for Hypercalcemia office visit. Network Relay Tester Required: No Accompanied by: Self / Same As Patient Allergies No Known Allergies Allergy (Verified 10/05/24 14:38) Medication List - Last Reconciled 10/05/24 by Janis Cooper MD HPI Comments Details: 34-year-old male here today for initial evaluation of hypercalcemia. Labs most recently done in August 2024 showed elevated calcium of 10.3 and 10.6 with albumin of 5.2. Corrected calcium would be normal. No prior history of calcium problems. Denies use of any supplements or medications. No kidney stones. No fractures. No family history of kidney stones or calcium problems. Reports no fatigue. No abdominal pain. No polyuria. No brain fog, mental status changes. No muscles aches / pains. No vitamin D or calcium supplements. Says he drinks a lot of water. 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 Pulmonary: No SOB GI:No abdominal pain, no nausea or vomiting, no anorexia, no blood in stool : no burning micturition, dysuria or increase in urinary frequency Neurologic: No dizziness, no weakness in extremities MSK: no back pain or joint stiffness Physical exam General: sitting comfortably in no acute distress HEENT: normocephalic/atraumatic, EOM intact, moist oral mucosa Neck: supple, symmetrical, no thyromegaly Cardiac: normal heart sounds Pulm: normal breath sounds B/L, no added breath sounds Abd: not distended, no tenderness Extremities: no edema, no signs of myxedema Neuro: AAO x3, Speech: normal, no facial droop, moving all 4 extremities Laboratory Tests 09/21/19 05/26/22 05/31/22 09:27 14:57 08:17 Hgb Hct Creatinine Estimated GFR Calcium 10.1 9.5 9.3 Magnesium 2.1 AST 35 79 H 120 H ALT 89 H 90 H 213 H Albumin 5.2 H 4.9 4.6 Total Protein Albumin (PEP) PTH Intact 08/26/24 09/04/24 14:00 11:11 Hgb 15.4 Hct 46.8 Creatinine 0.98 1.01 Estimated GFR > 60 > 60 Calcium 10.3 H D 10.6 H Magnesium AST 59 H ALT 84 H Albumin 5.2 H Total Protein 8.4 H Albumin (PEP) 5.3 H PTH Intact 33.5 PFSH Medical History Vasculitis Social History Patient Tobacco Use Status: Current everyday Tobacco user Physical Exam Vital Signs: Last Vital Signs Pulse 88 10/05/24 14:35 BP 160/100 H 10/05/24 14:35 BMI result Body Mass Index 31.4 Assessment & Plan Assessment & Plan (1) Hypercalcemia: Code(s): E83.52 - Hypercalcemia Category: Medical Plan: 34-year-old male with no significant past medical history who is coming in today for initial evaluation of elevated calcium levels. Blood work from August 2024 showed calcium levels in the range of 10.3-10.6, the albumin also noted to be elevated at 5.2. His corrected calcium would be within normal range. However given that calciums of the higher end of normal, we will obtain ionized calcium, PTH levels. He is not on any calcium or vitamin-D supplements. He does have minimal nutritional intake of calcium. I did advise him to take 2-3 servings of calcium rich foods daily to meet daily requirements. He is noted to have elevated albumin and protein levels, while these could be elevated in the setting of possible dehydration patient endorses that he drinks quite a bit of water. I told him to maintain good hydration and repeat blood work for me in 4 weeks with follow up in 6 weeks to ensure that his labs are normal. He denies any supplement use, denies any anabolic steroid use to point towards albumin elevation. Other differentials could possibly be MGUS, multiple myeloma, though no anemia noted, kidney function is normal. I have asked him to discuss this further with the his primary care physician. He has elevated liver enzymes, with significant alcohol use history, and I have asked him to further discuss with PCP regarding liver workup. Though liver disease would result in low albumin levels not high. Plan: -ordered repeat blood work with calcium, PTH, phosphorus, magnesium, albumin, ionized calcium and vitamin-D in 4 weeks -follow up in 6 weeks to discuss results -advised to take adequate amount of calcium in diet to meet requirement of 1000 mg daily by taking 2-3 servings of calcium rich foods daily Plan I spent 40 minutes in reviewing the record, seeing the patient and documenting in the medical record. Orders: Orders Calcium 4 Weeks E83.52 - Hypercalcemia Parathyroid Hormone Intact 4 Weeks E83.52 - Hypercalcemia Phosphorus 4 Weeks E83.52 - Hypercalcemia Magnesium 4 Weeks E83.52 - Hypercalcemia Albumin Level 4 Weeks E83.52 - Hypercalcemia Calcium, Ionized 4 Weeks E83.52 - Hypercalcemia Vitamin D 25-OH Total 4 Weeks E83.52 - Hypercalcemia Patient Instructions: Do blood work in 4 weeks Follow up with me in 6 weeks Take 2-3 servings of calcium rich foods daily whihc can be anything such as milk, yogurt, cottage cheese. 2 percent options are better for avoiding the extra fat. Everyone should be taking 1000 mg of calcium in their diet daily. Talk to your primary care physician about further evaluation of liver , cholesterol levels and elevated protein ( albumin) in your blood Coding Level of Care Code New Pt Level 4 (75117) Diagnoses Hypercalcemia E83.52 Time Spent (min) 40
[2024-10-05 14:35] VITALS: BP 160/100; PULSE 88; BMI 31.4
== END 2024-10-05 15:11 | disposition home or self-care (01) ==
PROVIDERS: PCP Internal Medicine; Visit Provider Student in an Organized Health Care Education/Training Program
DX: E83.52 Hypercalcemia (principal)
CPT/HCPCS: 99204

== ENCOUNTER → 2024-10-05 14:30 | Outpatient (BNVA) | payer OTHER, SELFPAY | PROVIDERS: PCP Internal Medicine; Visit Provider Student in an Organized Health Care Education/Training Program | DX: E83.52 Hypercalcemia (principal) | CPT/HCPCS: 99202 ==

== ENCOUNTER 2024-10-15 13:48 | Outpatient (REF) | payer OTHER, SELFPAY | END 2024-10-15 13:49 | disposition home or self-care (01) | LOC: HO.CHCLDS 13:48 | PROVIDERS: Visit Provider Internal Medicine | DX: R30.0 Dysuria (principal) | CPT/HCPCS: 87086 ==

== ENCOUNTER 2024-11-02 14:03 | Outpatient (REF) | payer OTHER, SELFPAY ==
[2024-11-02 17:20] LABS: Albumin Level 5.3 g/dL (3.5-5.0); Calcium 10.6 mg/dL (8.4-10.2); Magnesium 2.2 mg/dL (1.6-2.6); Phosphorus 3.7 mg/dL (2.7-4.5)
[2024-11-02 17:37] LABS: Vitamin D 25-OH Total 31.9 ng/mL (>30)
[2024-11-02 18:53] LABS: Parathyroid Hormone Intact 63.2 pg/mL (8.7-77.1)
[2024-11-03 15:23] LABS: Calcium, Ionized 5.4 mg/dL (4.7-5.5)
--- OUTSIDE RECORDS SUMMARY | 2024-11-04 16:02 | XMS_ITS | Continuity of Care Document ---
Author Organization [facility] vices Address [address] [place] [address] Phone Care Team Providers Care Industrial X Ray Operator Name Role Phone Unavailable Unavailable Unavailable Results Test Name Date and Time Measure Units Reference Range Abnormal Flag Status Comments Panel Description: HEMOGLOBIN A1C (CLP 52042) U nknown Document 00:00:00 See [facility] Archive Unknown [facility] Conversion Hemoglobin A1C 00:00:00 % Unknown Panel Description: TSH REFLEX TO FREE T4 (CLP 11 619) Unknown Document 00:00:00 See [facility] Archive Unknown [facility] Conversion TSH 00:00:00 Unknown Panel Description: LIPID BATTERY (CLP 47267) Un known Document 00:00:00 See [facility] Archive Unknown [facility] Conversion LIPID PANEL 00:00:00 Unknown Panel Description: BASIC METABOLIC PANEL (CLP 10 108) Unknown Document 00:00:00 See [facility] Archive Unknown [facility] Conversion eGFR 00:00:00 Unknown Glucose 00:00:00 Unknown Blood Urea Nitrogen (BUN) 00:00:00 Unknown Creatinine 00:00:00 Unknown Sodium 00:00:00 Unknown Potassium 00:00:00 Unknown Chloride 00:00:00 Unknown Calcium 00:00:00 Unknown AGAP 00:00:00 Unknown Carbon Dioxide 00:00:00 Unknown Advance Directives Directive Yes / No Effective Date File Name No Information Encounters Encounter Description Practice Location Reason(s) For Visit Diagnoses Date Provider Providers Copied on Encounter [facility], [address] [place], [address], tel:[phone] [facility] No Information No Information [facility], [address] [place], [address], [place] tel:[phone] Conversion UNSPECIFIED ESSENTIAL HYPERTENSION No Information Family History Family Member Type Diagnosis Age At Onset No Information Payers Payer name Insurance type Covered republican ID Authoriza tion(s) No Information Social History Type Description Quantity Date Captured Comments Sex Male Smoking Status No Information Vital Signs Date / Time: Height Weight BMI Pulse Rate Blood Pressure Temperature Respiratory Rate Body Surface Area Head Circumference Head Circ. Percentile Wt./Emanuel. Percentile BMI percentile Pulse Ox Inhaled Ox 72.50 in 78.000 kg (172.00 lbs) 23.0 0 kg/m eter (2) 81 /min 141/77 mm[Hg] 97.90 F 16 /min 84 /min 133/77 mm[Hg] Chief Complaint And Reason For Visit No Information Reason For Referral Reason For Referral No Information History Of Present Illness Encounter Date Complaint History Of Prese nt Illness No Information Functional Status Date Functional Assessmen t No Information Instructions Date Instruction Additional Infor mation No Information Assessments Type Assessment Date No Information Patient Care Teams Name Effective Dates (start - stop) Status Members No Information
== END 2024-11-02 14:04 | disposition home or self-care (01) ==
LOC: HO.HHCL 14:03
PROVIDERS: Visit Provider Student in an Organized Health Care Education/Training Program
DX: E83.52 Hypercalcemia (principal)
CPT/HCPCS: 36415; 82040; 82306; 82310; 82330; 83735; 83970; 84100

== ENCOUNTER 2024-11-13 10:32 | Outpatient (AMB) | payer OTHER, SELFPAY ==
--- NOTE | 2024-11-13 10:47 | MHC.OFFVIS ---
Vital Signs 11/13/24 10:56 Height 6 ft 2 in Weight 223 lb 6 oz BMI 28.7 BP 143/94 H Blood Pressure Location Lt brachial Position Sitting Pulse 91 Intake Visit Reasons: calculus of gallbladder Intake Note: Patient is seen in office for evaluation of the gallbladder. 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 The abdominal pain seems to be intermittent but occasionally quite severe. He is uncertain if this is associated with dietary intake. He denies fever or chills. Workup with an ultrasound of the abdomen shows a large gallstone within the gallbladder. No gallbladder wall thickening or pericholecystic fluid was identified. The liver was noted to be enlarged and fat replaced. [facility] Medical History Hypercalcemia Vasculitis Social History Alcohol intake: current Patient Tobacco Use Status: Current everyday Tobacco user Review of Systems Const All systems reviewed & are unremarkable except as noted in HPI and below Physical Exam Const General: cooperative and no acute distress Nutritional Appearance: well nourished Orientation/consciousness: patient oriented x3 Limitations: no limitations HEENT Head: Yes normocephalic and Yes atraumatic Ears: hearing grossly normal bilaterally Resp Effort & Inspection: normal respiratory effort, no audible wheezes, no cough and no respiratory distress Cardio Jugular venous distension: no JVD GI Inspection: Yes normal to inspection Palpation (GI): Soft to palpation, nontender, no guarding, not rigid and No hepatosplenomegaly present Rectal Exam - Male: Yes deferred Skin Other: Warm, dry, no rash Neuro General: patient oriented x3 Extrem General: Yes no clubbing, cyanosis or edema Assessment & Plan Assessment & Plan (1) Cholelithiasis: Code(s): K80.20 - Calculus of gallbladder without cholecystitis without obstruction Category: Medical Qualifiers: Cholelithiasis location: gallbladder Cholecystitis presence: without cholecystitis Biliary obstruction: without biliary obstruction Qualified Code(s): K80.20 - Calculus of gallbladder without cholecystitis without obstruction Plan 34-year-old male patient with complaints of abdominal pain in the right upper quadrant found to have gallstones with no evidence of acute cholecystitis on ultrasound. On examination the patient is currently with a benign abdomen. History and examination are suggestive of biliary colic due to cholelithiasis. We discussed laparoscopic cholecystectomy as a possible option especially if his symptoms seem to be worsening. I reviewed the procedure, risks and alternatives, he will consider his options and call us if he wishes to schedule surgery. He is welcome to call for questions as well. Coding Level of Care Code New Pt Level 4 (48533) Diagnoses Calculus of gallbladder without cholecystitis without obstruction K80.20 Cholelithiasis location: gallbladder Cholecystitis presence: without cholecystitis Biliary obstruction: without biliary obstruction
--- OUTSIDE RECORDS SUMMARY | 2024-11-13 10:54 | XMS_ITS | Continuity of Care Document ---
Author Organization [facility] vices Address [address] [place] [address] Phone Care Team Providers Care Director Of Neurology Name Role Phone Unavailable Unavailable Unavailable Results Test Name Date and Time Measure Units Reference Range Abnormal Flag Status Comments Panel Description: HEMOGLOBIN A1C (CLP 92622) U nknown Document 00:00:00 See [facility] Archive Unknown [facility] Conversion Hemoglobin A1C 00:00:00 % Unknown Panel Description: TSH REFLEX TO FREE T4 (CLP 11 619) Unknown Document 00:00:00 See [facility] Archive Unknown [facility] Conversion TSH 00:00:00 Unknown Panel Description: LIPID BATTERY (CLP 45044) Un known Document 00:00:00 See [facility] [...] Diagnoses Date Provider Providers Copied on Encounter [facility], [address] [place], [address], tel:[phone] [facility] Adolescent Health No Information No Information [facility], [address] [place], [address], [place] tel:[phone] Conversion UNSPECIFIED ESSENTIAL HYPERTENSION No Information Family History Family Member Type Diagnosis Age At Onset No Information Payers Payer name Insurance type Covered democrat ID Authoriza tion(s) No Information Social History [...]
[2024-11-13 10:56] VITALS: BP 143/94; PULSE 91; BMI 28.7
== END 2024-11-13 11:14 | disposition home or self-care (01) ==
PROVIDERS: PCP Internal Medicine; Visit Provider Surgery
DX: K80.20 Calculus of gallbladder without cholecystitis without obstruction (principal)
CPT/HCPCS: 99204

== ENCOUNTER → 2024-11-13 10:32 | Outpatient (BNVA) | payer OTHER, SELFPAY | PROVIDERS: PCP Internal Medicine; Visit Provider Surgery | DX: K80.20 Calculus of gallbladder without cholecystitis without obstruction (principal) | CPT/HCPCS: 99202 ==

== ENCOUNTER 2025-06-02 14:58 | Outpatient (AMB) | payer OTHER, SELFPAY ==
--- NOTE | 2025-06-02 15:13 | MHC.OFFVIS ---
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 He is a patient of . He is seen for the following urologic condition - anxiety about health - Vasectomy evaluation Vasectomy evaluation The patient presents for vasectomy consultation. He is currently He has fathered - 1 child, with a single partner. The youngest child is - less than greater than 1 yr old. His partner is aware and permissive for a vasectomy Current form of control is barrier. 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 Patient education has been provided via AUA video, via printed information, risks of failure, recovery time, bruising and potential pain syndrome have been stressed Discussion today focused on the presence of vasectomy and the risks, benefits and alternatives that are available. Vasectomy as intended as a permanent form of control. Printed information and literature was provided to the patient. Overall there is a one in 2500 failure rate. This can occur at any time after vasectomy. Risks were discussed highlighting hematoma, spermatocele, epididymal congestion, development of sperm antibodies, and development of chronic pain estimated between 1-5%. The procedure was reviewed in detail. Anatomical diagrams of the male genitalia were used to explain the location of the vas deferens. The vas deferens will be transected, the proximal end will be cauterized, a metal clip would be applied to separate the 2 vas deferens ends. It was explained the procedure will be done in the office and takes approximately 10-15 minutes. Less common problems that arise with vasectomy include hematoma, bleeding, allergic reaction to anesthetic, epididymal infection, epididymal congestion, scrotal discomfort, spermatic leak, spermatic granuloma and the possibility of antisperm antibodies. He understands these risks and wishes to proceed. Consent was signed at the office today. He also understands that it takes 12 weeks for sperm to fully clear the system. He will need to provide a semen sample at 12 weeks and if this is not clear a 2nd sample at 16 weeks. Medical clearance to stop using protection will only be provided if he satisfies published criteria for sperm clearance. [facility] Medical History Hypercalcemia Vasculitis Social History Alcohol intake: current Patient Tobacco Use Status: Current everyday Tobacco user Review of Systems Const Denies chills and Denies fever(s) Card Reports no additional complaints and Denies syncope Resp Denies cough GI Denies abdominal pain and Denies heartburn Reports as per HPI and Denies change in libido Neuro Denies syncope Psych Denies change in libido Endo Denies change in libido Physical Exam Const General: cooperative, healthy appearing, comfortable and no acute distress Orientation/consciousness: patient oriented x3 HEENT Face and sinus: Yes normal facial exam Mouth: moist mucous membranes Neck Neck: Yes normal visual inspection, Yes full ROM and Yes trachea midline Chest Chest palpation & inspection: normal inspection of the chest Resp Effort & Inspection: normal respiratory effort, able to speak in complete sentences and no respiratory distress GI Inspection: Yes normal to inspection Back/Spine/Pelvis Cervical Spine: normal cervical lordosis Thoracic/Lumbar Spine: thoracic and lumbar spine normal to inspection Skin General skin exam: no rashes or lesions noted Neuro General: patient oriented x3, gait normal, tone normal and moves all extremities Extrem General: Yes normal to inspection and Yes capillary refill normal Assessment & Plan Assessment & Plan (1) Anxiety about health: Code(s): R45.89 - Other symptoms and signs involving emotional state Category: Medical Plan Schedule vasectomy Medications: New diazepam Take medication after arrival at office 2 mg PO BID PRN 2 tabs 0RF anxiety 1 day R45.89 - Other symptoms and signs involving emotional state tramadol 50 mg PO Q8H PRN 7 tabs 0RF pain N43.3 - Hydrocele, unspecified, R45.89 - Other symptoms and signs involving emotional state Patient Instructions: This note is constructed using voice recognition software. While every effort has been made to ensure accuracy recycling worker errors may have been included. Imaging studies, laboratory and physical exam results were discussed and reviewed in detail. No major barriers to patient understanding were identified. An opportunity to ask questions regarding the treatment plan was provided. All questions were answered. The patient expressed understanding and agreement with the above treatment plan. The patient is aware they should contact our office by phone for worsening of their current condition or the appearance of new urologic symptoms. Compliance is encouraged with any medications and followup testing that is ordered. It is a privilege to participate in the urologic care of your patient. If you have any questions or concerns regarding treatment for the above conditions, or other urologic issues, please do not hesitate to contact me. The office telephone contact is [phone]. Sincerely, Dr Rip Arnett MD, [facility] - Urology Compassionate Specialist Care for the Genitourinary System Coding Level of Care Code New Pt Level 4 (99954) Diagnoses Anxiety about health R45.89
--- OUTSIDE RECORDS SUMMARY | 2025-06-02 15:24 | XMS_ITS | Encounter Summary ---
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 CASHIER Appt Social History Tobacco Use Types Packs/Day Years Used Date Smoking Tobacco: Never Assessed Sex and Gender Information Value Date Recorded Sex Assigned at Male 2022 10:36 AM EDT Legal Sex Male 10:36 AM EDT Gender Identity Male 05/11/2024 3:30 PM EDT Sexual Orientation Straight 06/17/2024 2: 24 PM EDT documented as of this encounter Miscellaneous Notes * Telephone Encounter - Carla Villa - 05/11/2024 1:17 PM EDT Tc from pt requesting new pt appt Demographics confirmed Insurance Active [place] [facility] documented in this encounter Plan of Treatment Not on file documented as of this encounter Visit Diagnoses Not on filedocumented in this encounter Care Teams Structural Steel Worker Relationship Specialty Start Date End Date Caroline Rivera MD [address] [place] [id number] PCP - General Internal Medicine 08/24/24 documented as of this encounter
--- OUTSIDE RECORDS SUMMARY | 2025-06-02 15:25 | XMS_ITS | Data Portability ---
Author Organization [facility], [address] Address [address] [place] [address] Assessment No assessment recorded. Plan of Treatment Reminders Order Date Submit Date Provider Last Modified By Organization Details Last Modified Time Details Appointments None recorded. Lab SARS CoV 2 (COVID-19) Ag, QL, IA, upper respiratory specimen 2022 023 [email or web address], [address] [place], [address], 14:25:22 Referral None recorded. Procedures None recorded. Surgeries None recorded. Imaging None recorded. Medication Orders Allergy Relief (fluticason e) 50 mcg/actuati on nasal spray,suspe nsion 2022 023 [facility] [place][id number], [address] [place], [address], 14:25:25 fexofenadin e-pseudoeph edrine ER 180 mg-240 mg tablet,ext. release 24 hr 2022 023 [facility] [place][id number], [address] [place], [address], 14:25:27 cephalexin 500 mg capsule 2022 023 [id number] [address] [place], [address], 13:48:19 Patient TargetsNo targets recorded. Patient Instructions Encounter Date Encounter Id Patient Instructions Last Modified By Organization Details Last Modified Time 05/16/2023 [id number] Discharge Instructions - Wound Care - Wash the wound gently with soap and warm water once daily. Otherwise keep wound clean, dry and covered with a dressing. - Do not immerse in water, and do not use alcohol or peroxide to clean. Do not use iodine or mercurochrome. - Elevate to decrease pain and improve healing. - Minimize use of affected body part. - Return here or see your doctor for any sign of infection, including redness, swelling, pus or increased pain. - Return for wound check in 2 or 3 days. - Return to have stiches removed in 12-14 days General recommendations: Scalp- 7 days Face- 5 day over joints - 14 days Hands/feet- 12 days Other areas - 10 days - If you received a tetanus shot the site may become sore and you may develop a low-grade fever. Take Tylenol if you have fever or pain. Return for a more severe reaction. - See your doctor or return here if not improving in 6 days. Not available 05/18/2023 13:05:26 05/21/2023 [id number] cuts: care instructions Not available 05/21/2023 11:18:35 Discharge Instructions - Wound Care Not available 05/21/2023 11:19:20 05/30/2023 [id number] suture setup kit* [email or web address] Not avail able 06/07/2023 07:42:11 Sutures were removed for you today. The area currently looks good and well healed. I would start Mederma cream on the area - 2 times daily for 60 days to help reduce scarring Make sure you use Sun Screen on the area for the next 6 months to help also reduces swelling and scarring. The UV rays can make the scar more visible - since that is new soft skin. You do not have the keep the area covered any longer. Don't hesitate to be seen again if you develop any of the followin. Increased skin redness around the healing laceration 2. Warmth around the wound 3. Purulent Discharge 4. Skin Discoloration/Carlos k Skin 5. Pain [email or web address] Not available 05/30/2023 11:56:33 09/23/2023 [id number] Sinusitis is an infection of the lining of the sinus cavities in your head. Sinusitis often follows a cold. It causes pain and pressure in your head and face. In most cases, sinusitis gets better on its own in 1 to 2 weeks. But some mild symptoms may last for several weeks. Sometimes antibiotics are needed. if you are having problems. It's also a good idea to know your test results and keep a list of the medicines you take. How can you care for yourself at home? Take an wbwh-zlp-vtsrzup pain medicine. Avoid Ibuprofen, Aleve and Aspirin if . If the doctor prescribed antibiotics, take them as directed. Do not stop taking them just because you feel better. You need to take the full course of antibiotics. Be careful when taking dvjf-yht-gyhonqf cold or influenza (flu) medicines and Tylenol at the same time. Many of these medicines have acetaminophen, which is Tylenol. Read the labels to make sure that you are not taking more than the recommended dose. Too much acetaminophen (Tylenol) can be harmful. Breathe warm, moist air from a steamy shower, a hot bath, or a sink filled with hot water. Avoid cold, dry air. Using a humidifier in your home may help. Follow the directions for cleaning the machine. Use saline (saltwater) nasal washes. This can help keep your nasal passages open and wash out mucus and bacteria. You can buy saline nose drops at a grocery store or drugstore. Or you can make your own at home by adding 1 teaspoon (5 millilitres) of salt and 1 teaspoon (5 millilitres) of baking soda to 2 cups (500 mL) of distilled water. If you make your own, fill a bulb syringe with the solution, insert the tip into your nostril, and squeeze gently. Blow your nose. Put a hot, wet towel or a warm gel pack on your face 3 or 4 times a day for 5 to 10 minutes each time. Try a decongestant nasal spray like oxymetazoline (Drixoral). Do not use it for more than 3 days in a row. Using it for more than 3 days can make your congestion worse. Not available 09/23/2023 14:25:18 If you test positive for COVID-19, stay home for at least 5 days and isolate from others in your home. You are likely most infectious during these first 5 days. Wear a high-quality mask if you must be around others at home and in public. Do not go places where you are unable to wear a mask. For travel guidance, see CDC s Travel webpage. Do not travel. Stay home and separate from others as much as possible. Use a separate bathroom, if possible. Take steps to improve ventilation at home, if possible. Don t share personal household items, like cups, towels, and utensils. Monitor your symptoms. If you have an emergency warning sign (like trouble breathing), seek emergency medical care immediately. If you had symptoms and: Your symptoms are improving You may end isolation after day 5 if: You are fever-free for 24 hours (without the use of fever-reducing medication). Your symptoms are not improving Continue to isolate until: You are fever-free for 24 hours (without the use of fever-reducing medication). Your symptoms are improving. Regardless of when you end isolation Until at least day 11: Avoid being around people who are more likely to get very sick from COVID-19. Remember to wear a high-quality mask when indoors around others at home and in public. Do not go places where you are unable to wear a mask until you are able to discontinue masking (see below). For travel guidance, see CDC s Travel webpage. Not available 09/23/2023 14:25:11 Reason for Referral None Reported. Results Created Date Observation Date Name Description Value Unit Range Abnormal Flag Note LastModifiedBy Organization Detail LastModifiedTime 09/23/20 23 09/23/2023 SARS CoV 2 (COVI D-19) Ag, QL, IA, upper respi rator y speci men Unknown Analyte positi ve Not Available [address] [place], [address], 09/23/2023 13:50:09 Result Notes None recorded. Problems No Known Problems Procedures Surgical History Date Name Laterality Status Provider Name and Address Organization Details Recorded Time 3 Suture Removal completed RK GRIFFIN [address] [place], [address], [place] - [facility] 05/30/2023 12:09:47 3 Laceration, Simple Repair, (scalp/neck/tr unk/genitalia/ extremities) 2.6-7.5cm completed Christy Carias MD [address] [place], [place] [address]jerome [place]is[place], [address], [place] - [facility] 05/18/2023 13:04:31 excision of hydrocele completed HALEY GARLAND [place] - [facility] 05/16/2023 19:06:58 Imaging Results None recorded. Procedure Notes None recorded. Medical Equipment None Reported. Allergies No known drug allergies Medications Name Sig Start Date Stop Date Status Note LastModified by Organization Details LastModified Time cephalexin 500 mg capsule Take 1 capsule 3 times a day by oral route for 10 days. 09/23 completed Not Available Not Available Not Available fexofenadin e-pseudoeph edrine ER 180 mg-240 mg tablet,ext. release 24 hr Take 1 tablet every day by oral route in the evening for 10 days. 2022 active Not Available Not Available Not Avai lable Allergy Relief (fluticason e) 50 mcg/actuati on nasal spray,suspe nsion [place] 1 spray every day by intranasa l route as directed for 30 days. 2022 active Not Available Not Available Not Avai lable Vitals Date Recorded Body height Body mass index (BMI) Body weight Body temperature Respiratory rate Oxygen saturation Oxygen saturation in Arterial blood by Pulse oximetry Heart rate Systolic And Diastolic Provider Name and Address Organization Details Last Updated DateTime 3 187.96 cm 28.9 kg/m2 195411. 28 g 97.9 [degF] 18 /min 98 % 98 % 83 /min 127/91 mm[Hg] HALEY GARLAND [place] - [facility] 3 19:08:38 Date Recorded Body height Body mass index (BMI) Body weight Heart rate Oxygen saturation Oxygen saturation in Arterial blood by Pulse oximetry Respiratory rate Body temperature Systolic And Diastolic Provider Name and Address Organization Details Last Updated DateTime 3 187.96 cm 28.9 kg/m2 490972. 28 g 97.7 /min 100 % 100 % 18 /min 97.7 [degF] 136/98 mm[Hg] HALEY GARLAND [place] - [facility] 3 10:50:05 Date Recorded Body height Body mass index (BMI) Body weight Respiratory rate Oxygen saturation Oxygen saturation in Arterial blood by Pulse oximetry Heart rate Body temperature Systolic And Diastolic Provider Name and Address Organization Details Last Updated DateTime 3 187.96 cm 28.9 kg/m2 273640. 28 g 16 /min 100 % 100 % 75 /min 98.1 [degF] 129/77 mm[Hg] Merly Ulices PA - [facility] 3 11:44:20 Date Recorded Body height Body mass index (BMI) Body weight Respiratory rate Oxygen saturation Oxygen saturation in Arterial blood by Pulse oximetry Heart rate Body temperature Systolic And Diastolic Provider Name and Address Organization Details Last Updated DateTime 3 187.96 cm 29.1 kg/m2 669557. 47 g 18 /min 96 % 96 % 82 /min 97.6 [degF] 132/90 mm[Hg] BRITTANIE ANGELO PA - [facility] 3 13:52:35 Social History Question Answer Notes LastModified by [employer] Details LastModified Time Tobacco Smoking Status Never Smoker BRITTANIE kate [place] - [facility] 09/23/2023 13:50:03 Have You Had A Flu Shot This Season? No Information not available 09/23/2023 If No, Would You Like A Flu Shot Today? No Information not available 09/23/2023 Have You Had Direct Contact, Or Contact During Intimacy, With Monkeypox Rash, Scabs, Or Body Fluids From A Person With Monkeypox? No Information not available 05/16/2023 Have You Recently Traveled Abroad? No Information not available 05/16/2023 Are You Currently In School? No Information not available 05/16/2023 Sex: Unknown Functional Status Question Answer Note LastModified by [employer] Details LastModified Time How many times per week do you consume alcohol? Less than 1 time per week Information not available 09/23/2023 Do you use any illicit or recreational drugs? No Information not available 05/16/2023 What is your level of alcohol consumption? Occasional Information not available 05/16/2023 Are you currently employed? Yes Information not available 05/16/2023 Mental Status None recorded. Family History Relationship Description Onset Age of this Age Resolved Age Notes LastModified by Organization Details LastModified Time Father No current problems or disability Not available 09/23 13:49:45 Mother No current problems or disability Not available 09/23 13:49:45 Medical History No medical history recorded. Immunizations Vaccine Type Date Status Note Provider Nam e and Address Organization Details Recorded Time Td (adult), 2 Lf tetanus toxoid, preservative free, adsorbed 3 completed Christy Carias MD [address] [place] [address] [place], [address], [place] - [facility] 05/18/2023 12:57:14 Past Encounters Encounter ID Performer Location Encounter Start Date Encounter Closed Date Diagnosis/Indication Diagnosis SNOMED-CT Code Diagnosis ICD10 Code Diagnosis Note [id number] [address] [address] [place] [address] 09/13/2020 09:31:43 09/13/2020 10:13:59 [id number] [facility]arias [facility] [address] [address] 05/16/2023 17:30:04 05/16/2023 19:53:48 Laceration of right lower leg [id number] 1113446 S81.811A 10 sutures placedretu rn in 4 days to check woundWound was left open for over 20 hours, therfore higher risk if infection. Patient aware.Peña viridiana closure was still done due to the size and depth of wound, higher risk infection and delayed healing . Risks of closure versus healing by secondary intention discussed and pateint agreed to closure [id number] Christy Carias MD [address] [facility] [address] [place] [address] 05/21/2023 09:49:23 05/21/2023 11:20:34 Laceration of right lower leg [id number] 0044057 S81.811D Wound is healing well. Sutures are intactNo signs of infection. Can return to work tomorrow.R emoval of sutures in 7-9 days [id number] RK GRIFFIN [address] [place] [address] 05/30/2023 11:05:44 05/30/2023 12:05:39 Removal of suture 88683174 Z48.02 9 sutures removed - no signs of infection or inflammati on. Healing well. [id number] Mike Lennon [place] [address] [address] 09/23/2023 13:37:18 09/23/2023 14:29:51 Exposure to SARS-CoV-2 651231344 Z20.822 COVID-19 046226408 U07.1 Acute sinusitis 20894348 J01.90 Health Concerns Section Related Observation LastModified by Organization Detai ls LastModified Time None Recorded Concern Status LastModified by Organization Details LastModified Time None Recorded Advance Directives Directive None Recorded Payers Insurance Date Sequence Insurance Name Policy Number Policy Bailon Covered Member ID Bailon Member ID Guarantor Name 09/23/2023 1 [place] [facility] Silke Loaiza [id number] Silke Loaiza 05/16/2023 PROMPT PAY Sp aaron Loaiza Notes Date Note Type Note Provider Name and Address Organization Details Recorded Time 05/16/2023 text/html UC Wound/LacerationRepor terrence bypatient.Location:[facility] Quality:laceration Severity:moderate Duration:20 hours Onset/Timing:date of initial injury: 05/15/23 Context:trauma Associated Symptoms:no fever; no bruising; no numbness; no tingling; normal sensationNotes:. He went to work and is here about 20 hours after initial injury Christy Carias MD Replaced by [facility] [place], [address], [place] - [facility] 05/18/2023 13:06:00 05/21/2023 text/html UC Wound/LacerationRepor terrence bypatient.Location:[facility] Quality:no cellulitis; no drainage Duration:5 days Onset/Timing:date of initial injury: 05/16/23 Context:trauma Associated Symptoms:no fever; no bruising; no numbness; no tingling; normal sensation Christy Carias MD [address] [place], [address], [place] [facility] 05/21/2023 12:30:05 05/30/2023 text/html Suture/Staple removalReported bypatient.source of patient informationpatient; Patient arrived at Urgent Care ambulatory Context:sutures Location:legs Quality:not bleeding; much improved; non tender Duration:10 days JS Associated Symptoms:no drainage; no ecchymosis; no redness; no warmthNotes:[address] no evidence of any infection. RK GRIFFIN [address] [place], [address], [place] [facility] 05/30/2023 12:12:19 09/23/2023 text/html Sinus Complaints UCReported bypatient.Location:si nus pain;facial pain;sinus pressure Associated Symptoms:no fever; no nausea or vomiting; no sore throat; no ear fullness; no nasal itching; no eye itching; no dizziness;difficulty breathing;Post nasal drip;nasal passage blockage;cough Onset/Timing:worse in am; worse in pm Quality:minimal discomfort;worsening; clear Duration:frequent Severity:moderate Context:no recent upper respiratory infection; no recent sick contacts; not worse with seasonal allergen exposure;worse with environmental exposure Risk Factors:no current smoking or tobacco use; no history of nasal trauma Alleviating factors:oral steroids Aggravating factors:worse during an upper respiratory infection (a cold); worse with excess fatigue Prior Treatmentoral decongestant Mike Lennon NP [address] [place], [address], [place] - [facility] 09/23/2023 14:26:41
== END 2025-06-02 15:37 | disposition home or self-care (01) ==
LOC: HO.HUSH 14:58
PROVIDERS: PCP Internal Medicine; Visit Provider Urology
DX: R45.89 Other symptoms and signs involving emotional state (principal)
CPT/HCPCS: 99204

== ENCOUNTER → 2025-06-02 14:58 | Outpatient (BNVA) | payer OTHER, SELFPAY | PROVIDERS: PCP Internal Medicine; Visit Provider Urology | DX: Z30.09 Encounter for other general counseling and advice on contraception (principal); R45.89 Other symptoms and signs involving emotional state | CPT/HCPCS: 99202 ==

== ENCOUNTER 2025-09-10 15:00 | Outpatient (AMB) | payer OTHER, SELFPAY ==
--- NOTE | 2025-09-10 15:08 | A.OFFVIS_ITS ---
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 He is a patient of . He is seen for the following urologic condition - anxiety about health - Vasectomy evaluation Vasectomy evaluation The patient presents for vasectomy consultation. He is currently He has fathered - 1 child, with a single partner. The youngest child is - less than greater than 1 yr old. His partner is aware and permissive for a vasectomy Current form of control is barrier. 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 Arnett Assessment & Plan Assessment & Plan Orders: Orders AMB Vasectomy Today R45.89 - Other symptoms and signs involving emotional state Coding CPT Codes Office Procedure - CPT: 48478 - Vasectomy ([id number])
--- OUTSIDE RECORDS SUMMARY | 2025-09-10 17:28 | XMS_ITS | Data Portability ---
Author Organization [facility], [address] Address [address] [place] [address] Assessment No assessment recorded. Plan of Treatment Reminders Order Date Submit Date Provider Last Modified By Organization Details Last Modified Time Details Appointments None recorded. Lab SARS CoV 2 (COVID-19) Ag, QL, IA, upper respiratory specimen 2022 023 [email or web address] [facility], [address] [place], [address], 14:25:22 Referral None recorded. Procedures None recorded. Surgeries None recorded. Imaging None recorded. Medication Orders Allergy Relief (fluticason e) 50 mcg/actuati on nasal spray,suspe nsion 2022 023 [id number], [address] [place], [address], 14:25:25 fexofenadin e-pseudoeph edrine ER 180 mg-240 mg tablet,ext. release 24 hr 2022 023 [id number], [address] [place], [address], 14:25:27 cephalexin 500 mg capsule 2022 023 [id number] [address] [place], [address], 13:48:19 Patient TargetsNo targets recorded. Patient Instructions Encounter Date Encounter Id Patient Instructions Last Modified By Organization Details Last Modified Time 05/16/2023 [id number] Discharge Instructions - Wound Care - Wash [...] 6 days. Not available 05/18/2023 13:05:26 05/21/2023 [id number] cuts: care instructions Not available 05/21/2023 11:18:35 Discharge Instructions - Wound Care Not available 05/21/2023 11:19:20 05/30/2023 [id number] suture setup kit* Not avail able 06/07/2023 07:42:11 Sutures were [...] 4. Skin Discoloration/Carlos k Skin 5. Pain Not available 05/30/2023 11:56:33 09/23/2023 [id number] Sinusitis is an infection of the lining [...] care for yourself at home? Take an ueql-lde-mkfryhm pain medicine. Avoid Ibuprofen, Aleve and Aspirin if . If the doctor prescribed antibiotics, take them as directed. Do not stop taking them just because you feel better. You need to take the full course of antibiotics. Be careful when taking agdv-qoq-snxqfgj cold or influenza (flu) medicines and Tylenol [...] 3 days can make your congestion worse. [email or web address] Not available 09/23/2023 14:25:18 If you test positive for COVID-19, stay home for at least 5 days and isolate from others in your home. Y ou are likely most infectious during these first 5 days. W ear a high-quality mask if you must be [...] may end isolation after day 5 if: Y ou are fever-free for 24 hours (without the use of fever-reducing medication). Your symptoms are not improving Continue to isolate until: Y ou are fever-free for 24 hours (without the use of fever-reducing medication). Your symptoms are improving. R egardless of when you end isolation Until at [...] travel guidance, see CDC s Travel webpage. [email or web address] Not available 09/23/2023 14:25:11 Reason for Referral None Reported. Results Created Date Observation Date Name Description Value Unit Range Abnormal Flag Note LastModifiedBy Organization Detail LastModifiedTime 09/23/20 23 09/23/2023 SARS CoV 2 (COVI D-19) Ag, QL, IA, upper respi rator y speci men Unknown Analyte positi ve Not Available [address] [facility], [place], [address], 09/23/2023 13:50:09 Result Notes None recorded. Problems No Known Problems Procedures Surgical History Date Name Laterality Status Provider Name and Address Organization Details Recorded Time 3 Suture Removal completed RK GRIFFIN [facility] [place], [address], [place] - [facility] 05/30/2023 12:09:47 3 Laceration, Simple Repair, (scalp/neck/tr unk/genitalia/ extremities) 2.6-7.5cm completed Christy Carias MD [address] [place], [place] [address]jerome EarldAlexisnSue[place]ob, [address], [place] - [facility] 05/18/2023 13:04:31 excision [...] e) 50 mcg/actuati on nasal spray,suspe nsion [place] 1 spray every day by intranasa l [...] Updated DateTime 3 187.96 cm 28.9 kg/m2 387693. 28 g 97.9 [degF] 18 /min 98 [...] Updated DateTime 3 187.96 cm 28.9 kg/m2 334056. 28 g 97.7 /min 100 % 100 % 18 /min 97.7 [degF] 136/98 mm[Hg] HALEY [place] - [facility] 3 10:50:05 Date Recorded Body height Body mass index (BMI) Body weight Respiratory rate Oxygen saturation Oxygen saturation in Arterial blood by Pulse oximetry Heart rate Body temperature Systolic And Diastolic Provider Name and Address Organization Details Last Updated DateTime 3 187.96 cm 28.9 kg/m2 404463. 28 g 16 /min 100 % 100 % 75 /min 98.1 [degF] 129/77 mm[Hg] Merly Elena [place] - [facility] 3 11:44:20 Date Recorded Body height Body mass index (BMI) Body weight Pain severity - 0-10 verbal numeric rating [Score] - Reported Respiratory rate Oxygen saturation Oxygen saturation in Arterial blood by Pulse oximetry Heart rate Body temperature Systolic And Diastolic Provider Name and Address Organization Details Last Updated DateTime 3 187.96 cm 29.1 kg/m2 344211. 47 g 0 18 /min 96 % 96 % 82 /min 97.6 [degF] 132/90 mm[Hg] BRITTANIE ANGELO [place] - [facility] 3 13:52:35 Social History Question Answer Notes LastModified by Cody Details LastModified Time Tobacco Smoking Status Never [...] Functional Status Question Answer Note LastModified by Cody Details LastModified Time How many times per [...] free, adsorbed 3 completed Christy Carias MD [address] [place], [place] [address] [place], [address], [place] - [facility] 05/18/2023 12:57:14 Past Encounters Encounter ID Performer Location Encounter Start Date Encounter Closed Date Diagnosis/Indication Diagnosis SNOMED-CT Code Diagnosis ICD10 Code Diagnosis IMO Codes Diagnosis Note [id number] 20994_[facility] 20994_[facility] [address] [place] [address] 09/13/2020 09:31:43 09/13/2020 10:13:59 [id number] Christy Carias MD [facility] [address] [address] 05/16/2023 17:30:04 05/16/2023 19:53:48 Laceration of right lower leg [id number] 3649232 S81.811A 10 sutures placedretu rn in 4 days to check woundWound was left open for over 20 hours, therfore higher risk if infection. Patient aware.Peña viridiana closure was still done due to the size and depth of wound, higher risk infection and delayed healing . Risks of closure versus healing by secondary intention discussed and pateint agreed to closure [id number] Christy Carias MD [address] [address] [place] [address] 05/21/2023 09:49:23 05/21/2023 11:20:34 Laceration of right lower leg [id number] 0210713 S81.811D Wound is healing well. Sutures are intactNo signs of infection. Can return to work tomorrow.R emoval of sutures in 7-9 days [id number] RK GRIFFIN [address] [facility] [facility] [place] [address] 05/30/2023 11:05:44 05/30/2023 12:05:39 Removal of suture 54917832 Z48.02 9 sutures removed - no signs of infection or inflammati on. Healing well. [id number] Mike Lennon NP [address] [facility] [place] keyes [phone] 09/23/2023 13:37:18 09/23/2023 14:29:51 Exposure to SARS-CoV-2 623780088 Z20.822 COVID-19 588192677 U07.1 Acute sinusitis 53764346 J01.90 Health Concerns Section Related Observation LastModified by Organization Detai ls LastModified Time None Recorded Concern Status LastModified by Organization Details LastModified Time None Recorded Advance Directives Directive None Recorded Payers Insurance Date Sequence Insurance Name Policy Number Policy Bailon Covered Member ID Bailon Member ID Guarantor Name 09/23/2023 1 [place] [facility] Silke Loaiza [id number] Silke Loaiza 05/16/2023 PROMPT PAY Sp aaron Loaiza Notes Date Note Type Note Provider Name and Address Organization Details Recorded Time 05/16/20 23 text/htm l UC Wound/LacerationReported by PatientHPIFor location, patient reportslegs. For quality, patient reportslaceration. For severity, patient reportsmoderate. For duration, patient qojfujm72 hours. For onset/timing, patient reportsdate of initial injury: 05/15/23. For context, patient reportstrauma. For associated symptoms, patient reportsno fever,no bruising,no numbness,no tingling, andnormal sensation.. He went to work and is here about 20 hours after initial injury Christy Carias MD [address] [place], [address], [place] - [facility] 05/18/2023 13:06:00 05/21/20 text/htm l UC Wound/LacerationReported by PatientHPIFor location, patient reportslegs. For quality, patient reportsno cellulitisandno drainage. For duration, patient reports5 days. For onset/timing, patient reportsdate of initial injury: 05/16/23. For context, patient reportstrauma. For associated symptoms, patient reportsno fever,no bruising,no numbness,no tingling, andnormal sensation. Christy Carias MD [address] [place], [address], [place] - [facility] 05/21/2023 12:30:05 05/30/20 text/htm l Suture/Staple removalReported by Patientencounter background informationFor source of patient information, patient reportspatientandpatient arrived at urgent care ambulatory.HPIFor context, patient reportssutures. For location, patient reportslegs. For quality, patient reportsnot bleeding,much improved, andnon tender. For duration, patient lwwfhyp42 days. For crow associated symptoms, patient reportsno drainage,no ecchymosis,no redness, andno warmth.[address] no evidence of any infection. RK GRIFFIN [address] [place] [place], [address], [place] - [facility] 05/30/2023 12:12:19 09/23/20 23 text/htm l Sinus Complaints UCReported by PatientHPIFor location, patient reportssinus pain,facial pain, andsinus pressure. For associated symptoms, patient reportsdifficulty breathing,post nasal drip,nasal passage blockage __, andcoughbut reportsno fever,no nausea or vomiting,no sore throat,no ear fullness,no nasal itching,no eye itching, andno dizziness. For quality, patient reportsworseningbut reportsminimal discomfortandclear. For context, patient reportsworse with environmental exposurebut reportsno recent upper respiratory infection,no recent sick contacts, andnot worse with seasonal allergen exposure. For onset/timing, patient reportsworse in amandworse in pm. For duration, patient reportsfrequent. For severity, patient reportsmoderate. For risk factors, patient reportsno current smoking or tobacco useandno history of nasal trauma. For alleviating factors, patient reportsoral steroids. For aggravating factors, patient reportsworse during an upper respiratory infection (a cold)andworse with excess fatigue. For prior treatment, patient reportsoral decongestant. Shortness of BreathReported by Patient Mike Lennon NP [address] [place], [address], [place] - [facility] 09/23/2023 14:26:41
== END 2025-09-10 16:18 | disposition home or self-care (01) ==
LOC: HO.HUSH 15:00
PROVIDERS: PCP Internal Medicine; Visit Provider Urology
DX: R45.89 Other symptoms and signs involving emotional state (principal); Z30.2 Encounter for sterilization
CPT/HCPCS: 55250

== ENCOUNTER → 2025-09-10 15:00 | Outpatient (BNVA) | payer OTHER, SELFPAY | PROVIDERS: PCP Internal Medicine; Visit Provider Urology | DX: Z30.2 Encounter for sterilization (principal) | CPT/HCPCS: 55250; J2003 ==